=== PATIENT | female | born 1950 | race Caucasian/White ===

== ENCOUNTER 2020-11-02 14:48 | Emergency (ER) | payer MEDICARE ==
[2020-11-02 15:32] LABS: ALBUMIN 4.6 g/dL (3.5-5.0); ALKALINE PHOSPHATASE 95 U/L (38-126); ANION GAP 12.9 MEQ/L (5-15); BLOOD UREA NITROGEN 15 mg/dL (7-17); CHLORIDE 103 mmol/L (98-107); Calcium 10.7 mg/dL (8.4-10.2); Carbon Dioxide 26 mmol/L (22-30); Creatinine 1 0.75 mg/dL (0.52-1.04); EST GLOMERULAR FILTRATION RATE > 60.0 ML/MIN; Glucose 138 mg/dL (74-106); Potassium 3.8 mmol/L (3.5-5.1); SGOT/AST 24 U/L (14-36); SGPT/ALT 17 U/L (0-35); SODIUM 138 mmol/L (137-145); Total Protein 8.7 g/dL (6.3-8.2)
[2020-11-02 15:38] LABS: Absolute Neutrophil Ct (ANC) 6.91 (1.4-6.9); BASOPHIL % 0.1 % (0.0-0.4); Basophil (Absolute #) 0.01 (0-0.4); Eosinophil (Absolute #) 0.08 (0-0.5); Hematocrit 40.4 % (35-47); Lymphocyte (Absolute #) 0.54 (1.0-4.6); Lymphocytes % 6.7 % (24.0-44.0); Mean Corpuscular Hemoglobin 33.3 pg (26-32); Mean Corpuscular Hgb Concent. 34.7 g/dl (32-36); Monocytes % 6.2 % (0.0-12.0); Platelet Count 143 K/mm3 (150-450); Red Blood Count 4.21 M/mm3 (4.1-5.4); Red Cell Distribution Width 14.9 % (11.5-14.0)
--- NOTE | 2020-11-02 16:09 | ERPHSYRPT ---
- History of Present Illness Historian: patient Exam Limitations: no limitations Patient Subjective Stated Complaint: Pt states "I have had horrible lower belly pressure and lower back pain since friday. I had horrible bleeding and clots on my pad for the past few days as well." Triage Nursing Assessment: Pt presented alert and oriented X 3, ski pwd Pt ambulates with a slow shuffling gait. Pt able to speak in clear full sentences. Pt in no apparent respiratory distress. Physician History: 70 yo morbidly obese wf w hematuria/suprapubic pain/B CVA pain x 2 days. Pt denies dysuria/frequency/N/V/D/melena/hematochezia. Timing/Duration: other (2 days) Quality: aching Abdominal Pain Onset Location: suprapubic Pain Radiation: back Severity of Pain-Max: mild Severity of Pain-Current: mild Modifying Factors: Improves With: nothing Associated Symptoms: denies symptoms, back Previous symptoms: other (Recently treated for a uti) Allergies/Adverse Reactions: Tetanus Vaccines and Toxoid Allergy (Severe, Verified 05/05/19 08:18) Anaphylactic Reaction pravastatin [From Pravachol] Allergy (Intermediate, Verified 05/05/19 08:18) Muscle Aches oxycodone Adverse Reaction (Severe, Verified 05/05/19 08:18) Fatigue Home Medications: Alprazolam [Xanax] 0.5 mg PO Q6HPRN PRN 05/05/19 [History] Apixaban [Eliquis] 2.5 mg PO BID 05/05/19 [History] Ferrous Sulfate [Iron] 325 mg PO DAILY 05/05/19 [History] Magnesium Oxide [Mag-Oxide] 200 mg PO DAILY 05/05/19 [History] Metoprolol Succinate 25 mg Xl* [Toprol-Xl 25MG Tablets] 25 mg PO DAILY 05/05/19 [History] Potassium Chloride [Potassium Chloride 20 Meq Powder For Oral Lay] 20 meq PO BID 05/05/19 [History] Sertraline HCl 50 mg [Zoloft 50 mg Tablet] 50 mg PO DAILY 05/05/19 [History] Spironolactone [Aldactone] 100 mg PO DAILY 05/05/19 [History] lisinopriL [Zestril] 2.5 mg PO DAILY 05/05/19 [History] Bumetanide 1 mg [Bumex 1 mg] 1 mg PO DAILY 11/02/20 [History] Gabapentin [Neurontin] 300 mg PO BID 11/02/20 [History] Smz/Tmp Ds Tablet [Bactrim Ds Tablet] 1 tab PO Q12H 11/02/20 [History] Hx Tetanus, Diphtheria Vaccination/Date Given: No Hx Influenza Vaccination/Date Given: Yes Hx Pneumococcal Vaccination/Date Given: No Immunizations Up to Date: Yes Travel Risk - International Travel Have you traveled outside of the country in past 3 weeks: No - Coronavirus Screening Are you exhibiting any of the following symptoms?: No Close contact with a COVID-19 positive Pt in past 14-21 Days: No - Review of Systems Constitutional: No Symptoms Eyes: No Symptoms Ears, Nose, & Throat: No Symptoms Respiratory: No Symptoms Cardiac: No Symptoms Abdominal/Gastrointestinal: Abdominal Pain Genitourinary Symptoms: No Symptoms, Hematuria, Flank Pain Musculoskeletal: No Symptoms Skin: No Symptoms Neurological: No Symptoms Psychological: No Symptoms Endocrine: No Symptoms Hematologic/Lymphatic: No Symptoms Immunological/Allergic: No Symptoms - Past Medical History Pertinent Past Medical History: Yes Neurological History: No Pertinent History ENT History: No Pertinent History Cardiac History: Congenital Heart Disease, Congestive Heart Failure, Other Respiratory History: CHF, COPD, Sleep Apnea Endocrine Medical History: No Pertinent History Musculoskeletal History: Osteoarthritis GI Medical History: Gallbladder Disease History: Other Psycho-Social History: Depression Female Reproductive Disorders: No Pertinent History Other Medical History: sjogrens syndrome, cellulitis, incontinence - Past Surgical History Past Surgical History: Yes Neuro Surgical History: No Pertinent History Cardiac: Valve Replacement Respiratory: Chest Surgery Gastrointestinal: Cholecystectomy Genitourinary: No Pertinent History Musculoskeletal: Joint Replacement, Orthopedic Surgery Female Surgical History: No Pertinent History Other Surgical History: two valve replacment, both hips replacement, rotator cuff. - Social History Smoking Status: Current every day smoker How long have you smoked: years Exposure to second hand smoke: Yes Drug Use: none Patient Lives Alone: No Significant Family History: no pertinent family hx - Female History Hx Now: No - Nursing Vital Signs Nursing Vital Signs: Initial Vital Signs Temperature 98.7 F 11/02/20 14:58 Pulse Rate 115 H 11/02/20 14:58 Respiratory Rate 22 11/02/20 14:58 Blood Pressure 138/64 11/02/20 14:58 O2 Sat by Pulse Oximetry 95 11/02/20 14:58 Pain Scale Pain Intensity 4 - Physical Exam General Appearance: no apparent distress Eye Exam: PERRL/EOMI, eyes nml inspection Ears, Nose, Throat Exam: normal ENT inspection, TMs normal, pharynx normal, moist mucous membranes Neck Exam: normal inspection, non-tender, No Brudzinski, No Kernig's, No carotid bruit Respiratory Exam: normal breath sounds, lungs clear, airway intact, No respiratory distress Cardiovascular Exam: regular rate/rhythm, normal heart sounds, normal peripheral pulses, No murmur Gastrointestinal/Abdomen Exam: soft, normal bowel sounds, tenderness (Mild suprapubic ttp wo guarding or rebound) Back Exam: CVA tenderness Extremity Exam: normal range of motion, other (Chronic venous stasis changes B) Neurologic Exam: alert, oriented x 3, cooperative, driller hand II-XII nml as tested, normal mood/affect, sensation nml, No motor deficits, No sensory deficit Skin Exam: warm, dry Lymphatic Exam: No adenopathy SpO2: 95 O2 Delivery: Room Air Ordered Tests: Active Orders 24 hr Category Date Time Status ABDOMEN AND PELVIS W/0 CONTRAS [CT] Stat Exams 11/02/20 17:28 Taken CBC W DIFF Stat Lab 11/02/20 13:05 Completed CMP Stat Lab 11/02/20 13:05 Completed CULTURE,URINE Stat Lab 11/02/20 15:47 Received Lactic Acid Stat Lab 11/02/20 15:34 Completed UA W/RFX UR CULTURE Stat Lab 11/02/20 15:47 Completed Medication Summary Discontinued Medications Generic Name Dose Route Start Last Admin Trade Name Meleq PRN Reason Stop Dose Admin Ceftriaxone Sodium/Dextrose 1 g in 50 mls @ 100 mls/hr 11/02/20 18:28 11/02/20 18:47 Rocephin 1 Gm-D5w 50 Ml Bag IV 11/02/20 18:57 100 mls/hr STAT STA 100 mls/hr Administration Ceftriaxone Sodium/Dextrose Confirm 11/02/20 18:43 Rocephin 1 Gm-D5w 50 Ml Bag Administered 11/02/20 18:44 Dose 1 g in 50 mls @ ud IV .STK-MED ONE Ketorolac Tromethamine 15 mg 12/10/20 17:06 11/02/20 17:47 Toradol 30 Mg Injection IV 11/02/20 17:07 15 mg STAT ONE Administration Ketorolac Tromethamine Confirm 11/02/20 17:47 Toradol 30 Mg Injection Administered 11/02/20 17:48 Dose 30 mg .ROUTE .STK-MED ONE Lab/Rad Data: Laboratory Result Diagrams 11/02/20 13:05 11/02/20 13:05 Laboratory Results 11/02/20 11/02/20 11/02/20 Range/Units 15:47 15:34 13:05 WBC (4.0-10.5) K/mm3 RBC (4.1-5.4) M/mm3 Hgb (12.0-16.0) gm/dl Hct (35-47) % MCV (78-100) fl MCH (26-32) pg MCHC (32-36) g/dl RDW (11.5-14.0) % Plt Count (150-450) K/mm3 MPV (7.5-11.0) fl Gran % (36.0-66.0) % Eos # (Auto) (0-0.5) Absolute Lymphs (auto) (1.0-4.6) Absolute Monos (auto) (0.0-1.3) Lymphocytes % (24.0-44.0) % Monocytes % (0.0-12.0) % Eosinophils % (0.00-5.0) % Basophils % (0.0-0.4) % Absolute Granulocytes (1.4-6.9) Basophils # (0-0.4) Sodium 138 (137-145) mmol/L Potassium 3.8 (3.5-5.1) mmol/L Chloride 103 (98-107) mmol/L Carbon Dioxide 26 (22-30) mmol/L Anion Gap 12.9 (5-15) MEQ/L BUN 15 (7-17) mg/dL Creatinine 0.75 (0.52-1.04) mg/dL Estimated GFR > 60.0 ML/MIN Glucose 138 H (74-106) mg/dL Lactic Acid 2.0 (0.4-2.0) Calcium 10.7 H (8.4-10.2) mg/dL Total Bilirubin 0.60 (0.2-1.3) mg/dL AST 24 (14-36) U/L ALT 17 (0-35) U/L Alkaline Phosphatase 95 (38-126) U/L Serum Total Protein 8.7 H (6.3-8.2) g/dL Albumin 4.6 (3.5-5.0) g/dL Urine Color KAMRAN (YELLOW) Urine Appearance CLOUDY (CLEAR) Urine pH 5.0 (5-6) Ur Specific [place] 1.023 (1.005-1.025) Urine Protein 30 (Negative) Urine Ketones NEGATIVE (NEGATIVE) Urine Blood LARGE (0-5) Juvencio/ul Urine Nitrite NEGATIVE (NEGATIVE) Urine Bilirubin NEGATIVE (NEGATIVE) Urine Urobilinogen NEGATIVE (0-1) mg/dL Ur Leukocyte Esterase MODERATE (NEGATIVE) Urine WBC (Auto) 51-100 (0-5) /HPF Urine RBC (Auto) 51-100 (0-2) /HPF U Hyaline Cast (Auto) 3-5 (0-2) /LPF U Epithel Cells (Auto) FEW (FEW) /HPF Urine Bacteria (Auto) RARE (NEGATIVE) /HPF Calcium Oxalate Crystal 51-99 (NEGATIVE) /HPF Urine Mucus (Auto) SLIGHT (NEGATIVE) /HPF Urine Culture Reflexed YES (NO) Urine Glucose NEGATIVE (NEGATIVE) mg/dL Slides for Path Review 11/02/20 Range/Units 13:05 WBC 8.0 (4.0-10.5) K/mm3 RBC 4.21 (4.1-5.4) M/mm3 Hgb 14.0 (12.0-16.0) gm/dl Hct 40.4 (35-47) % MCV 96.0 (78-100) fl MCH 33.3 H (26-32) pg MCHC 34.7 (32-36) g/dl RDW 14.9 H (11.5-14.0) % Plt Count 143 L (150-450) K/mm3 MPV 10.0 (7.5-11.0) fl Gran % 86.0 H (36.0-66.0) % Eos # (Auto) 0.08 (0-0.5) Absolute Lymphs (auto) 0.54 L (1.0-4.6) Absolute Monos (auto) 0.50 (0.0-1.3) Lymphocytes % 6.7 L (24.0-44.0) % Monocytes % 6.2 (0.0-12.0) % Eosinophils % 1.0 (0.00-5.0) % Basophils % 0.1 (0.0-0.4) % Absolute Granulocytes 6.91 H (1.4-6.9) Basophils # 0.01 (0-0.4) Sodium (137-145) mmol/L Potassium (3.5-5.1) mmol/L Chloride (98-107) mmol/L Carbon Dioxide (22-30) mmol/L Anion Gap (5-15) MEQ/L BUN (7-17) mg/dL Creatinine (0.52-1.04) mg/dL Estimated GFR ML/MIN Glucose (74-106) mg/dL Lactic Acid (0.4-2.0) Calcium (8.4-10.2) mg/dL Total Bilirubin (0.2-1.3) mg/dL AST (14-36) U/L ALT (0-35) U/L Alkaline Phosphatase (38-126) U/L Serum Total Protein (6.3-8.2) g/dL Albumin (3.5-5.0) g/dL Urine Color (YELLOW) Urine Appearance (CLEAR) Urine pH (5-6) Ur Specific [place] (1.005-1.025) Urine Protein (Negative) Urine Ketones (NEGATIVE) Urine Blood (0-5) Juvencio/ul Urine Nitrite (NEGATIVE) Urine Bilirubin (NEGATIVE) Urine Urobilinogen (0-1) mg/dL Ur Leukocyte Esterase (NEGATIVE) Urine WBC (Auto) (0-5) /HPF Urine RBC (Auto) (0-2) /HPF U Hyaline Cast (Auto) (0-2) /LPF U Epithel Cells (Auto) (FEW) /HPF Urine Bacteria (Auto) (NEGATIVE) /HPF Calcium Oxalate Crystal (NEGATIVE) /HPF Urine Mucus (Auto) (NEGATIVE) /HPF Urine Culture Reflexed (NO) Urine Glucose (NEGATIVE) mg/dL Slides for Path Review YES - Progress Progress: improved Progress Note: 11/02/20 18:29 15mg IV Toradol w improvement in pain 1gm IV Rocephin Pt later states that she is actually on Bactrim from a Rx written by PCP 12/10/20 19:45 Counseled pt/family regarding: lab results, diagnosis, rad results - Departure Departure Disposition: Home Clinical Impression: UTI (urinary tract infection) Condition: Stable Critical Care Time: No Referrals: HERMINIO PATEL MD [Primary Care Provider] - Instructions: Urinary Tract Infections in Adults Additional Instructions: Fluids Start Cipro twice a day for 5 days Follow up with your family MD in 1-2 days Return to ER for increasing pain or temperature greater than 100.5 Prescriptions: Ciprofloxacin HCl [Cipro] 500 mg PO BID #10 tablet
[2020-11-02] MEDS ORDERED: TORAdol 30 mg Injection IV ONE (17:06)
[2020-11-02 17:15] LABS: Appearance CLOUDY (CLEAR); Bacteria RARE /HPF (NEGATIVE); Bilirubin NEGATIVE (NEGATIVE); Blood LARGE Ery/ul (0-5); Epithelial Cells FEW /HPF (FEW); Glucose NEGATIVE (NEGATIVE); Ketones NEGATIVE (NEGATIVE); Leukocyte Esterase MODERATE (NEGATIVE); Mucus SLIGHT /HPF (NEGATIVE); Nitrite NEGATIVE (NEGATIVE); Protein,Urine Dip 30 (Negative); RBC 51-100 /HPF (0-2); Specific Gravity 1.023 (1.005-1.025); Urobilinogen NEGATIVE mg/dL (0-1); WBC 51-100 /HPF (0-5)
[2020-11-02] MEDS ORDERED: TORAdol 30 mg Injection ONE (17:47)
[2020-11-02 17:55] LABS: Slide Review 1 YES
[2020-11-02] MEDS ORDERED: ROCEPHIN 1 Gm-D5w 50 ml Bag** 1 G/50 ML IVPB IV STA (18:28)
[2020-11-02] MEDS ORDERED: ROCEPHIN 1 Gm-D5w 50 ml Bag** 1 G/50 ML IVPB IV ONE (18:43)
[2020-11-02 19:12] VITALS: BP 102/70; PULSE 91
[2020-11-02 19:46] VITALS: O2SAT 95
--- NOTE | 2020-11-03 11:37 | XRAY ---
Exam: CT of the abdomen and pelvis without IV contrast from 11/02/2020. CTDI: 32.07 mGy Comparison: CT of the abdomen with IV contrast from 08/30/[address] of the abdomen and pelvis with IV contrast from 02/16/2020. Indication: 70-year-old female with lower abdominal pain and back pain; history of prior open heart surgery, appendectomy, cholecystectomy, and bilateral hip replacements. Technique: Non-IV contrast axial images were obtained through the abdomen and pelvis. Reconstructed coronal and sagittal images were created and reviewed. Findings: The lung bases again reveals slight cardiomegaly representing no significant change from 08/30/2020. A portion of sternal wires are seen from prior sternotomy. The visualized lung bases appear clear, except for some minimal linear scarring/plate atelectasis at the left lung base. There is equivocal evidence of a minimal hiatal hernia. This is unchanged. I again see at least mild hepatomegaly with the right lobe measuring about 19.5 cm in craniocaudal dimension on coronal image #68. I don't believe this is significantly changed. No gross liver mass is seen, although sensitivity is decreased on a non-IV contrast study only. Surgical clips consistent with prior cholecystectomy are again seen within the right upper quadrant. No intrahepatic biliary duct distention is seen. I again see evidence of splenomegaly with the spleen measuring about extending 16.1 cm in greatest craniocaudal dimension on coronal image #108. This is relatively similar to 08/30/2020. A focal splenic mass is not definitely seen, although again sensitivity is decreased on a non-IV contrast study only. I believe there are a few varices overlying the left midabdomen, best seen near the inferior portion of the spleen. I don't believe this is changed. The pancreas and adrenal glands reveal no significant abnormality. No abdominal aortic aneurysm is seen. Vascular calcification is seen within the abdominal aorta, branches of the celiac axis and superior mesenteric artery, as well as the proximal iliac arteries. No abnormal retroperitoneal lymphadenopathy is seen. There is a 2 mm calcification within the inferior pole of the left kidney on axial image #57 and coronal image #95 which likely represents a small renal stone. I see no evidence of definite renal mass or hydronephrosis. Prior small cortical cyst at the anterior lateral aspect of the upper to mid left kidney is difficult to see on today's non-IV contrast study. Again, assessment of the renal parenchyma is limited on a non-IV contrast study only. Some bilateral renal pelvic fat is seen. I believe there is a minimal fat-containing ventral hernia just superior and to the left of the umbilicus which in retrospect is unchanged. No bowel containing ventral hernia is seen. There is no free intraperitoneal air. The appendix is surgically absent. There is no evidence of bowel obstruction. I again see mild sigmoid colon diverticulosis without evidence of diverticulitis. Significant beam hardening artifact is seen within the lower pelvis due to metallic bilateral hip replacements. The uterus is anteflexed. It contains some small calcified uterine fibroids, the largest measuring 1.9 cm in diameter along the right aspect. This is essentially unchanged. The ovaries appear grossly unremarkable. No abnormal enlarged pelvic lymph nodes or free intraperitoneal fluid is seen. No acute osseous process is seen. Incidental note of a vertebral hemangioma is seen within the left aspect of L2 representing no change dating back to 02/16/2020. Lumbar facet joint arthropathy is seen, most prominent at the lower 3 lumbar interspace levels bilaterally. The most inferior aspect of the femoral stem component of the right hip replacement has not been included at the inferior margin of the new client banking services clerk image or CT images. The left hip arthroplasty appears unremarkable. Impression: 1. I again see mild sigmoid colon diverticulosis without obvious diverticulitis, no significant change from 02/16/2020. 2. Bilateral hip prostheses cause significant CT artifact through the lower pelvis. 3. There is a 2 mm calcification within the lower pole of the left kidney which likely represents a small nonobstructing stone. No hydronephrosis is seen. 4. Some calcified uterine fibroids are again seen within the uterus representing no significant change. The ovaries appear grossly unremarkable. 5. Equivocal evidence of small hiatal hernia. In addition, I believe there is a small stable fat containing ventral hernia just superior and to the left of the umbilicus. No bowel containing ventral hernia is seen. 6. Mild hepatosplenomegaly is again seen. A few varices are noted adjacent to the lower portion of the spleen representing no change. 7. No other acute process seen within the abdomen or pelvis.
== END 2020-11-02 19:33 | disposition home or self-care (01) ==
LOC: ED 14:48
DX: N39.0 Urinary tract infection, site not specified (principal); Z79.01 Long term (current) use of anticoagulants; Z79.899 Other long term (current) drug therapy; I50.9 Heart failure, unspecified; G47.30 Sleep apnea, unspecified; F51.9 Sleep disorder not due to a substance or known physiological condition, unspecified; J44.9 Chronic obstructive pulmonary disease, unspecified
CPT/HCPCS: 36415; 74176; 80053; 81001; 83605; 85025; 87077; 87086; 87186; 96365; 96374; 99284; J0696; J1885

== ENCOUNTER 2020-11-07 17:32 | Observation (INO) | payer MEDICARE ==
[2020-11-07 19:40] LABS: Absolute Neutrophil Ct (ANC) 6.62 (1.4-6.9); BASOPHIL % 0.2 % (0.0-0.4); Basophil (Absolute #) 0.02 (0-0.4); Eosinophil % 1.2 % (0.00-5.0); Hematocrit 27.8 % (35-47); Lymphocyte (Absolute #) 1.02 (1.0-4.6); Lymphocytes % 12.3 % (24.0-44.0); Mean Cell Volume 100.7 fl (78-100); Mean Corpuscular Hemoglobin 32.6 pg (26-32); Mean Corpuscular Hgb Concent. 32.4 g/dl (32-36); Mean Platelet Volume 9.3 fl (7.5-11.0); Monocyte (Absolute #) 0.53 (0.0-1.3); Monocytes % 6.4 % (0.0-12.0); Neutrophil % 79.9 % (36.0-66.0); Platelet Count 144 K/mm3 (150-450); Red Blood Count 2.76 M/mm3 (4.1-5.4); Red Cell Distribution Width 15.3 % (11.5-14.0); White Blood Count 8.3 K/mm3 (4.0-10.5)
[2020-11-07 19:47] LABS: ALBUMIN 3.8 g/dL (3.5-5.0); ALKALINE PHOSPHATASE 73 U/L (38-126); ANION GAP 10.7 MEQ/L (5-15); BLOOD UREA NITROGEN 9 mg/dL (7-17); CHLORIDE 102 mmol/L (98-107); Calcium 9.8 mg/dL (8.4-10.2); Carbon Dioxide 28 mmol/L (22-30); Creatinine 1 0.68 mg/dL (0.52-1.04); EST GLOMERULAR FILTRATION RATE > 60.0 ML/MIN; Glucose 99 mg/dL (74-106); Potassium 3.8 mmol/L (3.5-5.1); SGOT/AST 21 U/L (14-36); SGPT/ALT 13 U/L (0-35); SODIUM 136 mmol/L (137-145); Total Protein 7.1 g/dL (6.3-8.2)
[2020-11-07 20:00] LABS: Iron 38 ug/dL (37-170); Iron Saturation 11 % (20-39); TIBC 360 ug/dL (265-462)
[2020-11-07] MEDS ORDERED: Sodium Chloride 0.9% 1000 ML 1,000 ML IV STA (20:32)
[2020-11-07] MEDS ORDERED: ULTRAM 50 MG PO PRN (21:11)
[2020-11-07] MEDS ORDERED: NEURONTIN 300 MG PO SCH (21:15)
[2020-11-07] MEDS ORDERED: xanAX 0.25 MG PO SCH (21:15)
[2020-11-07] MEDS: Sodium Chloride 0.9% 1000 ML 1,000 ML IV SCH (21:43)
[2020-11-07] MEDS ORDERED: ZOLOFT 50 MG TABLET PO SCH (22:00)
[2020-11-07 22:55] LABS: Appearance CLOUDY (CLEAR); Bilirubin MODERATE (NEGATIVE); Dipstick done @ ? MAIN LAB; Glucose 100 mg/dL (NEGATIVE); Ketones TRACE (NEGATIVE); Nitrite NEGATIVE (NEGATIVE); Protein,Urine Dip >=300 (Negative); RBC LARGE Ery/ul (0-5); Urobilinogen 1 mg/dL (0-1)
[2020-11-07 23:13] LABS: Bacteria RARE /HPF (NEGATIVE); Mucus SLIGHT /HPF (NEGATIVE); RBC >101 /HPF (0-2)
[2020-11-07 23:14] LABS: ABO TYPING O; Antibody Screen NEGATIVE (NEGATIVE); RH TYPING NEGATIVE
[2020-11-07 23:16] LABS: CROSS MATCH (PRBC) COMPATIBLE (COMPATIBLE)
[2020-11-07] MEDS ORDERED: TYLENOL 325 MG PO PRN (23:47)
[2020-11-08 00:28] LABS: Hematocrit 24.8 % (35-47); Hemoglobin 7.9 gm/dl (12.0-16.0); Mean Cell Volume 101.2 fl (78-100); Mean Corpuscular Hemoglobin 32.2 pg (26-32); Mean Corpuscular Hgb Concent. 31.9 g/dl (32-36); Mean Platelet Volume 9.4 fl (7.5-11.0); Platelet Count 124 K/mm3 (150-450); Red Blood Count 2.45 M/mm3 (4.1-5.4); Red Cell Distribution Width 15.4 % (11.5-14.0); White Blood Count 7.3 K/mm3 (4.0-10.5)
[2020-11-08] MEDS ORDERED: VENTOLIN COMMON CANISTER IH PRN (02:13)
[2020-11-08] MEDS ORDERED: Advair Hfa 230/21 Mcg COMMON CANISTER IH SCH (07:00)
[2020-11-08 07:04] LABS: Hematocrit 26.6 % (35-47); Hemoglobin 8.5 gm/dl (12.0-16.0); Mean Cell Volume 100.8 fl (78-100); Mean Corpuscular Hemoglobin 32.2 pg (26-32); Mean Platelet Volume 9.9 fl (7.5-11.0); Platelet Count 129 K/mm3 (150-450); Red Blood Count 2.64 M/mm3 (4.1-5.4); Red Cell Distribution Width 15.8 % (11.5-14.0); White Blood Count 6.6 K/mm3 (4.0-10.5)
[2020-11-08 07:13] LABS: ALBUMIN 3.3 g/dL (3.5-5.0); ALKALINE PHOSPHATASE 55 U/L (38-126); ANION GAP 7.4 MEQ/L (5-15); BLOOD UREA NITROGEN 8 mg/dL (7-17); CHLORIDE 104 mmol/L (98-107); Calcium 9.2 mg/dL (8.4-10.2); Carbon Dioxide 27 mmol/L (22-30); Creatinine 1 0.73 mg/dL (0.52-1.04); EST GLOMERULAR FILTRATION RATE > 60.0 ML/MIN; Glucose 95 mg/dL (74-106); Potassium 3.7 mmol/L (3.5-5.1); SGOT/AST 18 U/L (14-36); SGPT/ALT 11 U/L (0-35); SODIUM 135 mmol/L (137-145); Total Protein 6.2 g/dL (6.3-8.2)
[2020-11-08] MEDS ORDERED: NEURONTIN 300 MG PO PRN (07:30)
[2020-11-08] MEDS ORDERED: MEDICATION INTERVENTION MC SCH (09:45)
[2020-11-08] MEDS ORDERED: VITAMIN D PO SCH (10:00)
[2020-11-08] MEDS ORDERED: NON-FORMULARY ITEM (Cholecalciferol (Vitamin D3) [Vitamin D3] 5,000 UNIT) PO SCH (10:00)
[2020-11-08] MEDS ORDERED: Wellbutrin XL 150 MG PO SCH (10:00)
[2020-11-08] MEDS ORDERED: NON-FORMULARY ITEM (Magnesium [Magnesium] 250 MG) PO SCH (10:00)
[2020-11-08] MEDS ORDERED: HYDROXYCHLOROQUINE SULFATE PO SCH (10:00)
[2020-11-08] MEDS ORDERED: Singulair 10 MG PO SCH (10:00)
[2020-11-08] MEDS ORDERED: Zestril 5 MG PO SCH (10:00)
[2020-11-08] MEDS ORDERED: VITAMIN B COMPLEX PO SCH (10:00)
[2020-11-08] MEDS ORDERED: Aldactone 25 MG PO SCH (10:00)
[2020-11-08] MEDS ORDERED: VITA-BEE WITH C PO SCH (10:00)
[2020-11-08] MEDS ORDERED: TURMERIC ROOT EXTRACT 500 MG PO SCH (10:00)
[2020-11-08] MEDS ORDERED: MAG-OX 400 PO SCH (10:00)
[2020-11-08] MEDS ORDERED: NON-FORMULARY ITEM (Lisinopril [Zestril] 2.5 MG) PO SCH (10:00)
[2020-11-08] MEDS: Sodium Chloride 0.9% 1000 ML 1,000 ML IV SCH (10:26)
--- NOTE | 2020-11-08 10:28 | PCM.DS ---
Discharge Summary Date of Admission: 11/07/20 17:39 Date of Discharge: 11/08/20 Admitting Physician: HERMINIO PATEL MD Primary Care Provider: HERMINIO PATEL MD Allergies Allergies Tetanus Vaccines and Toxoid Allergy (Severe, Verified 05/05/19 08:18) Anaphylactic Reaction pravastatin [From Pravachol] Allergy (Intermediate, Verified 05/05/19 08:18) Muscle Aches oxycodone Adverse Reaction (Severe, Verified 11/07/20 21:28) [facility] Summary - Hospital Course Hospital Course: 70 yr old female was seen in clinic yesterday and was directly admitted to medical floor for vaginal bleeding weakness and anemia. Patient report she was in the ER on for pelvic pain and diagnosed with UTI and started on cipro and discharged home. Patient reports that she started having blood clots on and had told the ER doctor that she was having vaginal bleeding but reports no exam was done. CT performed at that time showed uterine fibroids. Patient called the clinic friday and stated she was having increased bleeding. Patient was told to either go to er or come to the clinic. She had endometrial biopsy and pap smear performed in clinic. She was actively bleeding and appeared weak and unwell. We discussed direct admission and patient was agreeable. She was bolused with IV fluids NS. Labs showed a drop in hgb from 14 on 11/02/20 to 9 11/08/20. Patient has had thrombocytopenia as well. Patient was type and screened and repeat hgb at midnight was 7.9. She was transfused 1 unit PRBCs. Repeat hgb this am 8.5. She will be transfused another unit as she is still having active bleeding and is symptomatic. Her eliquis and aspirin were held. Patient reported that she feels less shaky today. She is agreeable to transfer and consideration for possible surgery if required. Patient's VS have improved since admission however she continues to have borderline hypotension. - Vitals & Intake/Output Vital Signs: Vital Signs Temperature 97.4 F 11/08/20 07:10 Pulse Rate 72 11/08/20 08:26 Respiratory Rate 16 11/08/20 08:26 Blood Pressure 90/51 11/08/20 07:10 O2 Sat by Pulse Oximetry 98 11/08/20 08:26 Intake & Output: Intake & Output 12/13/20 11/06/20 11/07/20 11/08/20 11:59 11:59 11:59 11:59 Intake Total 4414 Output Total 450 Balance 3964 Weight 127 kg - Lab Result Diagrams: 11/08/20 11:12 11/08/20 05:20 Lab Results-Last 24 Hrs: Lab Results-Last 24 Hours 11/07/20 11/07/20 11/07/20 Range/Units 19:30 19:30 19:30 WBC 8.3 (4.0-10.5) K/mm3 RBC 2.76 L (4.1-5.4) M/mm3 Hgb 9.0 L (12.0-16.0) gm/dl Hct 27.8 L (35-47) % MCV 100.7 H (78-100) fl MCH 32.6 H (26-32) pg MCHC 32.4 (32-36) g/dl RDW 15.3 H (11.5-14.0) % Plt Count 144 L (150-450) K/mm3 MPV 9.3 (7.5-11.0) fl Gran % 79.9 H (36.0-66.0) % Eos # (Auto) 0.10 (0-0.5) Absolute Lymphs (auto) 1.02 (1.0-4.6) Absolute Monos (auto) 0.53 (0.0-1.3) Lymphocytes % 12.3 L (24.0-44.0) % Monocytes % 6.4 (0.0-12.0) % Eosinophils % 1.2 (0.00-5.0) % Basophils % 0.2 (0.0-0.4) % Absolute Granulocytes 6.62 (1.4-6.9) Basophils # 0.02 (0-0.4) Sodium 136 L (137-145) mmol/L Potassium 3.8 (3.5-5.1) mmol/L Chloride 102 (98-107) mmol/L Carbon Dioxide 28 (22-30) mmol/L Anion Gap 10.7 (5-15) MEQ/L BUN 9 (7-17) mg/dL Creatinine 0.68 (0.52-1.04) mg/dL Estimated GFR > 60.0 ML/MIN Glucose 99 (74-106) mg/dL Calcium 9.8 (8.4-10.2) mg/dL Iron (37-170) ug/dL TIBC (265-462) ug/dL Iron Saturation (20-39) % Ferritin 26.2 (11.1-264) ng/mL Total Bilirubin 0.40 (0.2-1.3) mg/dL AST 21 (14-36) U/L ALT 13 (0-35) U/L Alkaline Phosphatase 73 (38-126) U/L Serum Total Protein 7.1 (6.3-8.2) g/dL Albumin 3.8 (3.5-5.0) g/dL Urinalys Dipstick Clnc Urine Color Urine Appearance Urine pH Ur Specific [place] Urine Protein POC Urine Protein Conf (Negative) Urine Ketones Urine Blood Urine Nitrite Urine Bilirubin Urine Urobilinogen Ur Leukocyte Esterase Urine Leukocytes (NEGATIVE) Urine WBC (Auto) (0-5) /HPF Urine RBC (Auto) (0-2) /HPF U Epithel Cells (Auto) (FEW) /HPF Urine Bacteria (Auto) (NEGATIVE) /HPF Urine RBC (0-5) Juvencio/ul U Non-Squamous Epi Cells Urine Mucus (Auto) (NEGATIVE) /HPF Ur Culture Indicated? Urine Culture Reflexed Urine Glucose (NEGATIVE) mg/dL ABO Group Rh Factor Antibody Screen (NEGATIVE) Crossmatch (COMPATIBLE) 11/07/20 11/07/20 11/07/20 Range/Units 19:30 20:50 20:50 WBC (4.0-10.5) K/mm3 RBC (4.1-5.4) M/mm3 Hgb (12.0-16.0) gm/dl Hct (35-47) % MCV (78-100) fl MCH (26-32) pg MCHC (32-36) g/dl RDW (11.5-14.0) % Plt Count (150-450) K/mm3 MPV (7.5-11.0) fl Gran % (36.0-66.0) % Eos # (Auto) (0-0.5) Absolute Lymphs (auto) (1.0-4.6) Absolute Monos (auto) (0.0-1.3) Lymphocytes % (24.0-44.0) % Monocytes % (0.0-12.0) % Eosinophils % (0.00-5.0) % Basophils % (0.0-0.4) % Absolute Granulocytes (1.4-6.9) Basophils # (0-0.4) Sodium (137-145) mmol/L Potassium (3.5-5.1) mmol/L Chloride (98-107) mmol/L Carbon Dioxide (22-30) mmol/L Anion Gap (5-15) MEQ/L BUN (7-17) mg/dL Creatinine (0.52-1.04) mg/dL Estimated GFR ML/MIN Glucose (74-106) mg/dL Calcium (8.4-10.2) mg/dL Iron 38 (37-170) ug/dL TIBC 360 (265-462) ug/dL Iron Saturation 11 L (20-39) % Ferritin (11.1-264) ng/mL Total Bilirubin (0.2-1.3) mg/dL AST (14-36) U/L ALT (0-35) U/L Alkaline Phosphatase (38-126) U/L Serum Total Protein (6.3-8.2) g/dL Albumin (3.5-5.0) g/dL Urinalys Dipstick Clnc Urine Color Urine Appearance Urine pH Ur Specific [place] Urine Protein POC Urine Protein Conf (Negative) Urine Ketones Urine Blood Urine Nitrite Urine Bilirubin Urine Urobilinogen Ur Leukocyte Esterase Urine Leukocytes (NEGATIVE) Urine WBC (Auto) (0-5) /HPF Urine RBC (Auto) (0-2) /HPF U Epithel Cells (Auto) (FEW) /HPF Urine Bacteria (Auto) (NEGATIVE) /HPF Urine RBC (0-5) Juvencio/ul U Non-Squamous Epi Cells Urine Mucus (Auto) (NEGATIVE) /HPF Ur Culture Indicated? Urine Culture Reflexed Urine Glucose (NEGATIVE) mg/dL ABO Group O Rh Factor NEGATIVE Antibody Screen NEGATIVE (NEGATIVE) Crossmatch COMPATIBLE (COMPATIBLE) 11/07/20 11/07/20 11/08/20 Range/Units 20:50 22:47 00:15 WBC 7.3 (4.0-10.5) K/mm3 RBC 2.45 L (4.1-5.4) M/mm3 Hgb 7.9 L (12.0-16.0) gm/dl Hct 24.8 L (35-47) % MCV 101.2 H (78-100) fl MCH 32.2 H (26-32) pg MCHC 31.9 L (32-36) g/dl RDW 15.4 H (11.5-14.0) % Plt Count 124 L (150-450) K/mm3 MPV 9.4 (7.5-11.0) fl Gran % (36.0-66.0) % Eos # (Auto) (0-0.5) Absolute Lymphs (auto) (1.0-4.6) Absolute Monos (auto) (0.0-1.3) Lymphocytes % (24.0-44.0) % Monocytes % (0.0-12.0) % Eosinophils % (0.00-5.0) % Basophils % (0.0-0.4) % Absolute Granulocytes (1.4-6.9) Basophils # (0-0.4) Sodium (137-145) mmol/L Potassium (3.5-5.1) mmol/L Chloride (98-107) mmol/L Carbon Dioxide (22-30) mmol/L Anion Gap (5-15) MEQ/L BUN (7-17) mg/dL Creatinine (0.52-1.04) mg/dL Estimated GFR ML/MIN Glucose (74-106) mg/dL Calcium (8.4-10.2) mg/dL Iron (37-170) ug/dL TIBC (265-462) ug/dL Iron Saturation (20-39) % Ferritin (11.1-264) ng/mL Total Bilirubin (0.2-1.3) mg/dL AST (14-36) U/L ALT (0-35) U/L Alkaline Phosphatase (38-126) U/L Serum Total Protein (6.3-8.2) g/dL Albumin (3.5-5.0) g/dL Urinalys Dipstick Clnc MAIN LAB Urine Color Cancelled Urine Appearance Cancelled Urine pH Cancelled Ur Specific [place] Cancelled Urine Protein Cancelled POC Urine Protein Conf >=300 (Negative) Urine Ketones Cancelled Urine Blood Cancelled Urine Nitrite Cancelled Urine Bilirubin Cancelled Urine Urobilinogen Cancelled Ur Leukocyte Esterase Cancelled Urine Leukocytes NEGATIVE (NEGATIVE) Urine WBC (Auto) 3-5 (0-5) /HPF Urine RBC (Auto) >101 (0-2) /HPF U Epithel Cells (Auto) NONE (FEW) /HPF Urine Bacteria (Auto) RARE (NEGATIVE) /HPF Urine RBC LARGE (0-5) Juvencio/ul U Non-Squamous Epi Cells Cancelled Urine Mucus (Auto) SLIGHT (NEGATIVE) /HPF Ur Culture Indicated? YES Urine Culture Reflexed Cancelled Urine Glucose 100 (NEGATIVE) mg/dL ABO Group Rh Factor Antibody Screen (NEGATIVE) Crossmatch COMPATIBLE (COMPATIBLE) 11/08/20 11/08/20 Range/Units 05:20 05:20 WBC 6.6 (4.0-10.5) K/mm3 RBC 2.64 L (4.1-5.4) M/mm3 Hgb 8.5 L (12.0-16.0) gm/dl Hct 26.6 L (35-47) % MCV 100.8 H (78-100) fl MCH 32.2 H (26-32) pg MCHC 32.0 (32-36) g/dl RDW 15.8 H (11.5-14.0) % Plt Count 129 L (150-450) K/mm3 MPV 9.9 (7.5-11.0) fl Gran % (36.0-66.0) % Eos # (Auto) (0-0.5) Absolute Lymphs (auto) (1.0-4.6) Absolute Monos (auto) (0.0-1.3) Lymphocytes % (24.0-44.0) % Monocytes % (0.0-12.0) % Eosinophils % (0.00-5.0) % Basophils % (0.0-0.4) % Absolute Granulocytes (1.4-6.9) Basophils # (0-0.4) Sodium 135 L (137-145) mmol/L Potassium 3.7 (3.5-5.1) mmol/L Chloride 104 (98-107) mmol/L Carbon Dioxide 27 (22-30) mmol/L Anion Gap 7.4 (5-15) MEQ/L BUN 8 (7-17) mg/dL Creatinine 0.73 (0.52-1.04) mg/dL Estimated GFR > 60.0 ML/MIN Glucose 95 (74-106) mg/dL Calcium 9.2 (8.4-10.2) mg/dL Iron (37-170) ug/dL TIBC (265-462) ug/dL Iron Saturation (20-39) % Ferritin (11.1-264) ng/mL Total Bilirubin 0.50 (0.2-1.3) mg/dL AST 18 (14-36) U/L ALT 11 (0-35) U/L Alkaline Phosphatase 55 (38-126) U/L Serum Total Protein 6.2 L (6.3-8.2) g/dL Albumin 3.3 L (3.5-5.0) g/dL Urinalys Dipstick Clnc Urine Color Urine Appearance Urine pH Ur Specific [place] Urine Protein POC Urine Protein Conf (Negative) Urine Ketones Urine Blood Urine Nitrite Urine Bilirubin Urine Urobilinogen Ur Leukocyte Esterase Urine Leukocytes (NEGATIVE) Urine WBC (Auto) (0-5) /HPF Urine RBC (Auto) (0-2) /HPF U Epithel Cells (Auto) (FEW) /HPF Urine Bacteria (Auto) (NEGATIVE) /HPF Urine RBC (0-5) Juvencio/ul U Non-Squamous Epi Cells Urine Mucus (Auto) (NEGATIVE) /HPF Ur Culture Indicated? Urine Culture Reflexed Urine Glucose (NEGATIVE) mg/dL ABO Group Rh Factor Antibody Screen (NEGATIVE) Crossmatch (COMPATIBLE) - Procedures and Test Procedures and Tests throughout Hospitalization: Therapy Orders & Screens 11/08/20 02:54 Oxygen NASAL CANNULA 2 lpm Comment: Diagnosis: WEAKNESS, ABD/ BACK PAIN Respiratory Therapy Assessment DAILY Comment: Diagnosis: WEAKNESS, ABD/ BACK PAIN Discharge Exam General Appearance: moderate distress Neurologic Exam: alert, oriented x 3, cooperative, normal mood/affect, other (proptosis) Ears, Nose, Throat Exam: moist mucous membranes Respiratory Exam: other (patient is breathless with speaking) Cardiovascular Exam: murmur, No friction rub, No gallop Gastrointestinal/Abdomen Exam: soft, normal bowel sounds, tenderness (Diffuse abdominal tenderness) Pelvic Exam: vaginal bleeding, other Rectal Exam: deferred Extremity Exam: pedal edema, swelling, other (Lower extremites are dusky in colo r) Skin Exam: warm, dry, No rash Final Diagnosis/Problem List - Final Discharge Diagnosis/Problem (1) Vaginal bleeding Current Visit: Yes Status: Acute Assessment & Plan: Patient is post menopausal and started having vaginal bleeding with reported "large blood clots" which she states stated last . She was seen in ER and had stable hgb at that time. CT showed uterine fibroids unchanged from last CT done in january. Patient had endometrial biopsy done 11/07/20 results pending. Eliquis and aspirin were held. Patient was symptomatic and VS reflected hemodynamically unstable. Her pulse has normalized and bp has started to gradually improve however borderline hypotensive at times. She has been received 2 units of PRBCs. 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 Code(s): N93.9 - ABNORMAL UTERINE AND VAGINAL BLEEDING, UNSPECIFIED (2) Weakness Current Visit: Yes Status: Acute Assessment & Plan: Patient reports she feels better this am. She is not as shaky as she was yesterday. She still feels unwell. She continues to feel weak and continues to be breathless when speaking. Code(s): R53.1 - WEAKNESS (3) Anemia due to blood loss Current Visit: Yes Status: Acute Code(s): D50.0 - IRON DEFICIENCY ANEMIA SECONDARY TO BLOOD LOSS (CHRONIC) (4) Morbid (severe) obesity due to excess calories Current Visit: Yes Status: Acute Assessment & Plan: Patient's BMI is 43. Patient feels her abdomen is more distended than usual. Code(s): E66.01 - MORBID (SEVERE) OBESITY DUE TO EXCESS CALORIES (5) Pelvic pain Current Visit: Yes Status: Acute Assessment & Plan: Patient has been taking Tylenol for pain and that has been sufficient. She reports her pelvic pain has improved slightly since admission. Code(s): R10.2 - PELVIC AND PERINEAL PAIN (6) Thrombocytopenia Current Visit: Yes Status: Acute Assessment & Plan: Will continue to trend. Patient has had hx of thrombocytopenia - Discharge Prescriptions: No Action Metoprolol Succinate 25 mg Xl* [Toprol-Xl 25MG Tablets] 25 mg PO DAILY Sertraline HCl 50 mg [Zoloft 50 mg Tablet] 100 mg PO HS lisinopriL [Zestril] 2.5 mg PO DAILY Gabapentin [Neurontin] 300 mg PO BID Ciprofloxacin HCl [Cipro] 500 mg PO BID #10 tablet Apixaban [Eliquis] 5 mg PO BID Potassium Chloride 10 Meq Tab* [Klor Con 10 MEQ] 10 meq PO BID Bumetanide 1 mg [Bumex 1 mg] 2 mg PO UD Montelukast Sodium 10 mg [Singulair 10 MG] 10 mg PO DAILY Aspirin EC 81 mg [Ecotrin 81 mg] 81 mg PO DAILY Spironolactone 25 mg [Aldactone 25 MG] 50 mg PO DAILY Hydroxychloroquine Sulfate 200 mg PO BID Magnesium 250 mg PO BID Cholecalciferol (Vitamin D3) [Vitamin D3] 5,000 unit PO DAILY Vitamin B Complex [Super B Complex] 1 cap PO DAILY Budesonide/Formoterol Fumarate [Budesonide-Formoterol 160-4.5] 2 puffs PO DAILY Bupropion HCl [Wellbutrin Xl] 150 mg PO DAILY Metformin HCl 500 mg [Glucophage 500 MG] 500 mg PO DAILY Mirabegron [Myrbetriq] 50 mg PO BID Ferrous Sulfate [Iron] 325 mg PO HS Turmeric Root Extract [Turmeric] 500 mg PO DAILY L.acidoph,Paracasei, B.lactis [Probiotic] 1 each PO HS Follow up with: HERMINIO PTAEL MD [Primary Care Provider] -
[2020-11-08 11:28] LABS: BAND 1 % (0.0-2.0); Eosinophil 1 % (0.00-3.0); Lymphocytes 15 % (24-44); Monocyte 5 % (0.0-12.0); Neutrophils 78 % (36.0-66.0); Total Cells Counted 100
[2020-11-08 11:28] LABS: Hemoglobin 8.3 gm/dl (12.0-16.0)
[2020-11-08 11:29] LABS: Platelet Estimate DECREASED (NORMAL)
[2020-11-08 11:31] LABS: INR 1.38 (0.8-3.0); PROTIME 15.7 SECONDS (9.95-12.35)
[2020-11-08 11:33] LABS: PTT 32.7 SECONDS (25.3-37.0)
[2020-11-08 11:48] VITALS: O2SAT 95
[2020-11-08 16:32] VITALS: BP 94/53; PULSE 82
[2020-11-08] MEDS ORDERED: FEOSOL 325 MG PO SCH (22:00)
[2020-11-08] MEDS ORDERED: NON-FORMULARY ITEM (L.Acidoph,Paracasei, B.Lactis [Probiotic] 1 EACH) PO SCH (22:00)
[2020-11-08] MEDS ORDERED: Acidophilus TABLET PO SCH (22:00)
== END 2020-11-08 16:17 ==
LOC: MED SURG 17:39
PROVIDERS: ADMIT Family Medicine; ATTEND Family Medicine
DX: N93.9 Abnormal uterine and vaginal bleeding, unspecified (principal); R53.1 Weakness; D50.0 Iron deficiency anemia secondary to blood loss (chronic); E66.01 Morbid (severe) obesity due to excess calories; D69.6 Thrombocytopenia, unspecified; Z79.899 Other long term (current) drug therapy; Z79.01 Long term (current) use of anticoagulants; N39.0 Urinary tract infection, site not specified; R10.2 Pelvic and perineal pain
CPT/HCPCS: 36415; 36430; 80053; 81015; 82607; 82728; 82746; 83540; 83550; 84466; 85014; 85018; 85025; 85027; 85610; 85730; 86850; 86900; 86901; 86922; 87086; 94640; 94760; G0378; P9016; A9270-GY

== ENCOUNTER 2021-12-28 13:15 | Emergency (ER) | payer MEDICARE ==
[2021-12-28] MEDS ORDERED: SUBLIMAZE 100 MCG/2 ML IV ONE ×3 (13:23→16:22)
[2021-12-28] MEDS ORDERED: Zofran 4 MG/2 ML VIAL IV ONE (13:23)
[2021-12-28] MEDS ORDERED: Sodium Chloride 0.9% 1000 ML 1,000 ML IV STA (13:23)
[2021-12-28] MEDS ORDERED: Zofran 4 MG/2 ML VIAL ONE (13:32)
[2021-12-28] MEDS ORDERED: Sodium Chloride 0.9% 1000 ML 1,000 ML ONE (13:32)
[2021-12-28] MEDS ORDERED: SUBLIMAZE 100 MCG/2 ML ONE ×3 (13:32→16:17)
[2021-12-28 14:06] LABS: Absolute Neutrophil Ct (ANC) 13.93 (1.4-6.9); Basophil (Absolute #) 0.01 (0-0.4); Eosinophil (Absolute #) 0 (0-0.5); Hematocrit 45.3 % (35-47); Hemoglobin 15.6 gm/dl (12.0-16.0); Lymphocyte (Absolute #) 0.22 (1.0-4.6); Lymphocytes % 1.5 % (24.0-44.0); Mean Cell Volume 95.4 fl (78-100); Mean Corpuscular Hemoglobin 32.8 pg (26-32); Mean Corpuscular Hgb Concent. 34.4 g/dl (32-36); Mean Platelet Volume 10.1 fl (7.5-11.0); Monocyte (Absolute #) 0.85 (0.0-1.3); Monocytes % 5.7 % (0.0-12.0); Neutrophil % 92.7 % (36.0-66.0); Platelet Count 106 K/mm3 (150-450); Red Blood Count 4.75 M/mm3 (4.1-5.4); Red Cell Distribution Width 13.8 % (11.5-14.0)
[2021-12-28 14:12] LABS: INR 1.56 (0.8-3.0); PROTIME 18.4 SECONDS (9.4-12.5)
[2021-12-28 14:17] LABS: ALBUMIN 3.8 g/dL (3.5-5.0); ALKALINE PHOSPHATASE 41 U/L (38-126); AMYLASE 31 U/L (30-110); ANION GAP 14.7 MEQ/L (5-15); BLOOD UREA NITROGEN 14 mg/dL (7-17); CHLORIDE 105 mmol/L (98-107); Carbon Dioxide 19 mmol/L (22-30); Creatinine 1 1.05 mg/dL (0.52-1.04); EST GLOMERULAR FILTRATION RATE 54.9 ML/MIN; Glucose 110 mg/dL (74-106); Potassium 4.2 mmol/L (3.5-5.1); SGOT/AST 24 U/L (14-36); SGPT/ALT 19 U/L (0-35); SODIUM 135 mmol/L (137-145); Total Protein 6.8 g/dL (6.3-8.2)
[2021-12-28 14:31] LABS: LIPASE < 10 U/L (23-300)
--- NOTE | 2021-12-28 14:38 | XRAY ---
Indication: Left flank pain. Comparison: May 28, 2021. Portable chest again demonstrates cardiomegaly with cardiac valve replacement surgery. Stable tiny calcified granulomas and left midlung subsegmental atelectasis/scarring. Bony thorax intact again with sternotomy wires. Impression: Continued nonacute chest with chronic features.
--- NOTE | 2021-12-28 14:42 | XRAY ---
Indication: Left flank pain. Multiple contiguous axial images obtained through the abdomen and pelvis without contrast using renal stone protocol. Comparison: November 02, 2020. Lung bases again demonstrates minimal subsegmental atelectasis/scarring. No infiltrate or effusion. Heart remains enlarged. Images of the pelvis again limited due to extreme beam artifact from bilateral hip prostheses. New 5-6 mm distal left ureter calculus. Proximal left ureter is prominent along with moderate hydronephrosis and perinephric stranding consistent with high-grade obstructive uropathy. No renal calculus or evidence for obstructive uropathy on the right. Noncontrasted stomach and visualized bowel loops nonobstructed again with sigmoid diverticulosis. Liver and spleen both remain enlarged measuring 21 cm and 14.7 cm respectively. Gallbladder again surgically absent. Uterus again demonstrates calcified uterine fibroids with new IUD. No large free fluid/air. Remaining liver, pancreas, spleen, adrenal glands, kidneys, ureters, and bladder are unremarkable for noncontrast exam. Again mild scattered aortoiliac calcifications without AAA. Osseous structures intact again with mild osteopenia and mild degenerative changes throughout the spine. Impression: 1. Again bilateral total hip arthroplasty producing extreme beam artifact. 2. New 5-6 mm distal left ureter calculus producing high-grade obstruction. 3. New uterine IUD. 4. Again cardiomegaly, hepatosplenomegaly, sigmoid diverticulosis, calcified uterine fibroids, and chronic bony findings.
[2021-12-28 15:03] LABS: Slide Review 1 YES
[2021-12-28 15:20] LABS: Appearance CLEAR (CLEAR); Bacteria FEW /HPF (NEGATIVE); Bilirubin NEGATIVE (NEGATIVE); Blood SMALL Ery/ul (0-5); Epithelial Cells RARE /HPF (FEW); Glucose NEGATIVE (NEGATIVE); Ketones NEGATIVE (NEGATIVE); Leukocyte Esterase TRACE (NEGATIVE); Mucus SLIGHT /HPF (NEGATIVE); Nitrite NEGATIVE (NEGATIVE); Protein,Urine Dip 100 (Negative); Specific Gravity 1.023 (1.005-1.025); Urobilinogen 2 mg/dL (0-1); WBC 26-50 /HPF (0-5)
--- NOTE | 2021-12-28 15:50 | ERPHSYRPT ---
- History of Present Illness Time Seen by Provider: 12/28/21 13:25 Historian: patient Exam Limitations: no limitations Patient Subjective Stated Complaint: pt here for left sided abd pain with vomiting for 3 days now, Triage Nursing Assessment: pt arrived per ambulance, alert, resp labored at times, skin w/d/p. face mask in place , abd soft and tender to touch, edema not lower legs that pt states is normal for her Physician History: Patient is a 71-year-old white female who presents with severe abdominal pain particularly in the left side and flank and repeated vomiting. Her blood thinner is present she is on atrial fibrillation she has 36 hours of pain and she noted blood in her urine she also has a history of diverticulitis. Timing/Duration: hour(s) (36) Activities at Onset: none Quality: cramping, stabbing Abdominal Pain Onset Location: LLQ (Left flank), flank Severity of Pain-Max: severe Severity of Pain-Current: severe Modifying Factors: Improves With: nothing Associated Symptoms: back, nausea, vomiting Previous symptoms: no prior history Allergies/Adverse Reactions: Tetanus Vaccines and Toxoid Allergy (Severe, Verified 12/28/21 13:26) Anaphylactic Reaction pravastatin [From Pravachol] Allergy (Intermediate, Verified 12/28/21 13:26) Muscle Aches oxycodone Adverse Reaction (Severe, Verified 12/28/21 13:26) Irregular Heart Beat Home Medications: Metoprolol Succinate 25 mg Xl* [Toprol-Xl 25MG Tablets] 25 mg PO DAILY 05/05/19 [History] Sertraline HCl 50 mg [Zoloft 50 mg Tablet] 100 mg PO HS 05/05/19 [History] lisinopriL [Zestril] 2.5 mg PO DAILY 05/05/19 [History] Gabapentin [Neurontin] 300 mg PO BID 11/02/20 [History] Apixaban [Eliquis] 5 mg PO BID 11/08/20 [History] Aspirin EC 81 mg [Ecotrin 81 mg] 81 mg PO DAILY 11/08/20 [History] Budesonide/Formoterol Fumarate [Budesonide-Formoterol 160-4.5] 2 puffs PO DAILY 11/08/20 [History] Bumetanide 1 mg [Bumex 1 mg] 2 mg PO UD 11/08/20 [History] Cholecalciferol (Vitamin D3) [Vitamin D3] 5,000 unit PO DAILY 11/08/20 [History] Ferrous Sulfate [Iron] 325 mg PO HS 11/08/20 [History] Hydroxychloroquine Sulfate 200 mg PO BID 11/08/20 [History] L.acidoph,Paracasei, B.lactis [Probiotic] 1 each PO HS 11/08/20 [History] Magnesium 250 mg PO BID 11/08/20 [History] Metformin HCl 500 mg [Glucophage 500 MG] 500 mg PO DAILY 11/08/20 [History ] Mirabegron [Myrbetriq] 50 mg PO BID 11/08/20 [History] Montelukast Sodium 10 mg [Singulair 10 MG] 10 mg PO DAILY 11/08/20 [History] Potassium Chloride 10 Meq Tab* [Klor Con 10 MEQ] 10 meq PO BID 11/08/20 [History] Spironolactone 25 mg [Aldactone 25 MG] 50 mg PO DAILY 11/08/20 [History] Turmeric Root Extract [Turmeric] 500 mg PO DAILY 11/08/20 [History] Vitamin B Complex [Super B Complex] 1 cap PO DAILY 11/08/20 [History] buPROPion HCL [Wellbutrin Xl] 150 mg PO DAILY 11/08/20 [History] Hx Tetanus, Diphtheria Vaccination/Date Given: No Hx Influenza Vaccination/Date Given: Yes Hx Pneumococcal Vaccination/Date Given: No Immunizations Up to Date: Yes Travel Risk - International Travel Have you traveled outside of the country in past 3 weeks: No - Coronavirus Screening Are you exhibiting any of the following symptoms?: Yes Symptoms: Fever, Vomiting/Diarrhea Close contact with a COVID-19 positive Pt in past 14-21 Days: No - Vaccine Status Have you recieved a Covid-19 vaccination: Yes 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 - Review of Systems Constitutional: No Fever, No Chills Eyes: No Symptoms Ears, Nose, & Throat: No Symptoms Respiratory: No Cough, No Dyspnea Cardiac: No Chest Pain, No Edema, No Syncope Abdominal/Gastrointestinal: Abdominal Pain, Nausea, Vomiting, No Diarrhea Genitourinary Symptoms: Hematuria, Flank Pain, No Dysuria Musculoskeletal: No Back Pain, No Neck Pain Skin: No Rash Neurological: No Dizziness, No Focal Weakness, No Sensory Changes Psychological: No Symptoms Endocrine: No Symptoms All Other Systems: Reviewed and Negative - Past Medical History Pertinent Past Medical History: Yes Neurological History: No Pertinent History ENT History: No Pertinent History Cardiac History: Congenital Heart Disease, Congestive Heart Failure, Other Respiratory History: CHF, COPD, Sleep Apnea Endocrine Medical History: No Pertinent History Musculoskeletal History: Osteoarthritis GI Medical History: Gallbladder Disease History: Other Psycho-Social History: Depression Female Reproductive Disorders: No Pertinent History Other Medical History: sjogrens syndrome, cellulitis, incontinence - Past Surgical History Past Surgical History: Yes Neuro Surgical History: No Pertinent History Cardiac: Valve Replacement Respiratory: Chest Surgery Gastrointestinal: Cholecystectomy Genitourinary: No Pertinent History Musculoskeletal: Joint Replacement, Orthopedic Surgery Female Surgical History: No Pertinent History Other Surgical History: two valve replacment, both hips replacement, rotator cuff. - Social History Smoking Status: Current every day smoker How long have you smoked: years Exposure to second hand smoke: Yes Drug Use: none Patient Lives Alone: No Significant Family History: no pertinent family hx - Female History Hx Last Menstrual Period: post - Nursing Vital Signs Nursing Vital Signs: Initial Vital Signs Temperature 99.0 F 12/28/21 13:15 Pulse Rate 95 H 12/28/21 13:15 Respiratory Rate 32 H 12/28/21 13:15 Blood Pressure 130/81 12/28/21 13:15 O2 Sat by Pulse Oximetry 95 12/28/21 13:15 Pain Scale Pain Intensity 6 - Physical Exam General Appearance: severe distress, alert Eye Exam: PERRL/EOMI, eyes nml inspection Ears, Nose, Throat Exam: normal ENT inspection, pharynx normal, moist mucous membranes Neck Exam: normal inspection, non-tender, supple, full range of motion Respiratory Exam: normal breath sounds, lungs clear, No respiratory distress Cardiovascular Exam: regular rate/rhythm, normal heart sounds Gastrointestinal/Abdomen Exam: tenderness, guarding, rebound, No mass Back Exam: normal inspection, normal range of motion, No CVA tenderness, No vertebral tenderness Extremity Exam: normal inspection, normal range of motion, pelvis stable Neurologic Exam: alert, oriented x 3, cooperative, normal mood/affect, nml cerebellar function, sensation nml, No motor deficits Skin Exam: normal color, warm, dry SpO2: 96 - Course Nursing assessment & vital signs reviewed: Yes - CT Exams Abdomen/Pelvis CT Interpretation: Other (5 to 6 mm distal left ureteral stone with high-grade obstruction) Ordered Tests: Active Orders 24 hr Category Date Time Status EKG-ER Only STAT Care 12/28/21 13:23 Active IV Insertion STAT Care 12/28/21 13:23 Active ABDOMEN AND PELVIS W/0 CONTRAS [CT] Stat Exams 12/28/21 13:24 Completed CHEST 1 VIEW (PORTABLE) Stat Exams 12/28/21 13:24 Completed AMYLASE Stat Lab 12/28/21 13:45 Completed BLOOD CULTURE Stat Lab 12/28/21 13:50 Received CBC W DIFF Stat Lab 12/28/21 13:23 Completed CMP Stat Lab 12/28/21 13:45 Completed CULTURE,URINE Stat Lab 12/28/21 14:32 Ordered FECAL OCCULT BLOOD - SCREENING Stat Lab 12/28/21 13:23 Ordered LIPASE Stat Lab 12/28/21 13:45 Completed Lactic Acid Stat Lab 12/28/21 13:23 Completed PROTIME WITH INR Stat Lab 12/28/21 13:23 Completed TROPONIN Q3H Lab 12/28/21 13:40 Completed TROPONIN Q3H Lab 12/28/21 16:30 Ordered TROPONIN Q3H Lab 12/28/21 19:30 Ordered TROPONIN Q3H Lab 12/28/21 22:30 Ordered TROPONIN Q3H Lab 12/29/21 01:30 Ordered UA W/RFX UR CULTURE Stat Lab 12/28/21 14:32 Completed Medication Summary Discontinued Medications Generic Name Dose Route Start Last Admin Trade Name Juan Carlos PRN Reason Stop Dose Admin Fentanyl Citrate 100 mcg 12/28/21 13:23 12/28/21 13:35 Fentanyl Citrate 100 Mcg/2 Ml* Vial IV 12/28/21 13:24 100 mcg STAT ONE Administration Fentanyl Citrate Confirm 12/28/21 13:32 Fentanyl Citrate 100 Mcg/2 Ml* Vial Administered 12/28/21 13:33 Dose 100 mcg .ROUTE .STK-MED ONE Fentanyl Citrate 100 mcg 12/28/21 14:52 12/28/21 15:05 Fentanyl Citrate 100 Mcg/2 Ml* Vial IV 12/28/21 14:53 100 mcg STAT ONE Administration Fentanyl Citrate Confirm 12/28/21 15:01 Fentanyl Citrate 100 Mcg/2 Ml* Vial Administered 12/28/21 15:02 Dose 100 mcg .ROUTE .STK-MED ONE Sodium Chloride 1,000 mls @ 999 mls/hr 12/28/21 13:23 12/28/21 14:52 Sodium Chloride 0.9% 1000 Ml IV 12/28/21 14:23 Infused .Q1H1M STA Infusion Sodium Chloride Confirm 12/28/21 13:32 Sodium Chloride 0.9% 1000 Ml Administered 12/28/21 13:33 Dose 1,000 mls @ ud .ROUTE .STK-MED ONE Ondansetron HCl 4 mg 12/28/21 13:23 12/28/21 13:35 Ondansetron Hcl 4 Mg/2 Ml Vial IV 12/28/21 13:24 4 mg STAT ONE Administration Ondansetron HCl Confirm 12/28/21 13:32 Ondansetron Hcl 4 Mg/2 Ml Vial Administered 12/28/21 13:33 Dose 4 mg .ROUTE .STK-MED ONE Lab/Rad Data: Laboratory Result Diagrams 12/28/21 13:23 12/28/21 13:45 Laboratory Results 12/28/21 12/28/21 12/28/21 Range/Units 14:32 13:45 13:40 WBC (4.0-10.5) K/mm3 RBC (4.1-5.4) M/mm3 Hgb (12.0-16.0) gm/dl Hct (35-47) % MCV (78-100) fl MCH (26-32) pg MCHC (32-36) g/dl RDW (11.5-14.0) % Plt Count (150-450) K/mm3 MPV (7.5-11.0) fl Gran % (36.0-66.0) % Eos # (Auto) (0-0.5) Absolute Lymphs (auto) (1.0-4.6) Absolute Monos (auto) (0.0-1.3) Lymphocytes % (24.0-44.0) % Monocytes % (0.0-12.0) % Eosinophils % (0.00-5.0) % Basophils % (0.0-0.4) % Absolute Granulocytes (1.4-6.9) Basophils # (0-0.4) PT (9.4-12.5) SECONDS INR (0.8-3.0) Sodium 135 L (137-145) mmol/L Potassium 4.2 (3.5-5.1) mmol/L Chloride 105 (98-107) mmol/L Carbon Dioxide 19 L (22-30) mmol/L Anion Gap 14.7 (5-15) MEQ/L BUN 14 (7-17) mg/dL Creatinine 1.05 H (0.52-1.04) mg/dL Estimated GFR 54.9 ML/MIN Glucose 110 H (74-106) mg/dL Lactic Acid (0.4-2.0) Calcium 11.0 H (8.4-10.2) mg/dL Total Bilirubin 1.70 H (0.2-1.3) mg/dL AST 24 (14-36) U/L ALT 19 (0-35) U/L Alkaline Phosphatase 41 (38-126) U/L Troponin I 0.024 (0.000-0.034) ng/mL Serum Total Protein 6.8 (6.3-8.2) g/dL Albumin 3.8 (3.5-5.0) g/dL Amylase 31 (30-110) U/L Lipase < 10 L (23-300) U/L Urine Color KAMRAN (YELLOW) Urine Appearance CLEAR (CLEAR) Urine pH 5.0 (5-6) Ur Specific [place] 1.023 (1.005-1.025) Urine Protein 100 (Negative) Urine Ketones NEGATIVE (NEGATIVE) Urine Blood SMALL (0-5) Juvencio/ul Urine Nitrite NEGATIVE (NEGATIVE) Urine Bilirubin NEGATIVE (NEGATIVE) Urine Urobilinogen 2 (0-1) mg/dL Ur Leukocyte Esterase TRACE (NEGATIVE) Urine WBC (Auto) 26-50 (0-5) /HPF Urine RBC (Auto) 11-15 (0-2) /HPF U Epithel Cells (Auto) RARE (FEW) /HPF Urine Bacteria (Auto) FEW (NEGATIVE) /HPF Urine Mucus (Auto) SLIGHT (NEGATIVE) /HPF Urine Culture Reflexed ORDERED SEPARATELY (NO) Urine Glucose NEGATIVE (NEGATIVE) mg/dL Slides for Path Review 12/28/21 12/28/21 12/28/21 Range/Units 13:23 13:23 13:23 WBC 15.0 H (4.0-10.5) K/mm3 RBC 4.75 (4.1-5.4) M/mm3 Hgb 15.6 (12.0-16.0) gm/dl Hct 45.3 (35-47) % MCV 95.4 (78-100) fl MCH 32.8 H (26-32) pg MCHC 34.4 (32-36) g/dl RDW 13.8 (11.5-14.0) % Plt Count 106 L (150-450) K/mm3 MPV 10.1 (7.5-11.0) fl Gran % 92.7 H (36.0-66.0) % Eos # (Auto) 0 (0-0.5) Absolute Lymphs (auto) 0.22 L (1.0-4.6) Absolute Monos (auto) 0.85 (0.0-1.3) Lymphocytes % 1.5 L (24.0-44.0) % Monocytes % 5.7 (0.0-12.0) % Eosinophils % 0.0 (0.00-5.0) % Basophils % 0.1 (0.0-0.4) % Absolute Granulocytes 13.93 H (1.4-6.9) Basophils # 0.01 (0-0.4) PT 18.4 H (9.4-12.5) SECONDS INR 1.56 (0.8-3.0) Sodium (137-145) mmol/L Potassium (3.5-5.1) mmol/L Chloride (98-107) mmol/L Carbon Dioxide (22-30) mmol/L Anion Gap (5-15) MEQ/L BUN (7-17) mg/dL Creatinine (0.52-1.04) mg/dL Estimated GFR ML/MIN Glucose (74-106) mg/dL Lactic Acid 3.2 H (0.4-2.0) Calcium (8.4-10.2) mg/dL Total Bilirubin (0.2-1.3) mg/dL AST (14-36) U/L ALT (0-35) U/L Alkaline Phosphatase (38-126) U/L Troponin I (0.000-0.034) ng/mL Serum Total Protein (6.3-8.2) g/dL Albumin (3.5-5.0) g/dL Amylase (30-110) U/L Lipase (23-300) U/L Urine Color (YELLOW) Urine Appearance (CLEAR) Urine pH (5-6) Ur Specific [place] (1.005-1.025) Urine Protein (Negative) Urine Ketones (NEGATIVE) Urine Blood (0-5) Juvencio/ul Urine Nitrite (NEGATIVE) Urine Bilirubin (NEGATIVE) Urine Urobilinogen (0-1) mg/dL Ur Leukocyte Esterase (NEGATIVE) Urine WBC (Auto) (0-5) /HPF Urine RBC (Auto) (0-2) /HPF U Epithel Cells (Auto) (FEW) /HPF Urine Bacteria (Auto) (NEGATIVE) /HPF Urine Mucus (Auto) (NEGATIVE) /HPF Urine Culture Reflexed (NO) Urine Glucose (NEGATIVE) mg/dL Slides for Path Review YES - Progress Progress: improved Progress Note: 12/28/21 15:50 With the discovery of high-grade obstruction with the 5 to 6 mm left ureteral stone we did contact urology at [facility] made arrangements fo r her to have outpatient surgery at [facility]. - Departure Departure Disposition: Transfer Clinical Impression: Calculus of distal left ureter Condition: Stable Critical Care Time: No Referrals: KALANI FARFAN, [Primary Care Provider] - Follow up/PCP as directed
[2021-12-28 16:21] VITALS: BP 126/98; PULSE 96; O2SAT 98
== END 2021-12-28 16:20 | disposition short-term general hospital (02) ==
LOC: ED 13:15
DX: N20.1 Calculus of ureter (principal); R10.32 Left lower quadrant pain; R11.2 Nausea with vomiting, unspecified; I50.9 Heart failure, unspecified; J44.9 Chronic obstructive pulmonary disease, unspecified; M35.00 Sjogren syndrome, unspecified; Z72.0 Tobacco use; Z79.01 Long term (current) use of anticoagulants; Z79.899 Other long term (current) drug therapy
CPT/HCPCS: 36000; 36415; 71045; 74176; 80053; 81001; 82150; 83605; 83690; 84484; 85025; 85610; 87040; 87077; 87086; 87186; 93005; 96360; 96374; 96375; 96376; 99285; J2405; J3010

== ENCOUNTER 2022-07-29 21:56 | Emergency (ER) | payer MEDICARE ==
[2022-07-29] MEDS ORDERED: Zofran 4 MG/2 ML VIAL IV ONE (22:19)
[2022-07-29] MEDS ORDERED: MORPHINE SULFATE 4 MG INJ IV ONE (22:19)
[2022-07-29] MEDS ORDERED: Zofran 4 MG/2 ML VIAL ONE (22:23)
[2022-07-29] MEDS ORDERED: MORPHINE SULFATE 4 MG INJ ONE (22:24)
[2022-07-29 22:47] LABS: Absolute Neutrophil Ct (ANC) 4.72 x10^3/uL (1.4-6.9); Basophil (Absolute #) 0.03 x10^3/uL (0-0.4); Eosinophil % 0.5 % (0.00-5.0); Eosinophil (Absolute #) 0.03 x10^3/uL (0-0.5); Hemoglobin 12.3 g/dL (12.0-16.0); Lymphocyte (Absolute #) 0.76 x10^3/uL (1.0-4.6); Lymphocytes % 12.3 % (24.0-44.0); Mean Cell Volume 79.7 fL (78-100); Mean Corpuscular Hemoglobin 24.5 pg (26-32); Mean Corpuscular Hgb Concent. 30.8 g/dL (32-36); Mean Platelet Volume 9.7 fL (7.5-11.0); Monocyte (Absolute #) 0.62 x10^3/uL (0.0-1.3); Neutrophil % 76.2 % (36.0-66.0); Platelet Count 148 x10^3/uL (150-450); Red Blood Count 5.02 x10^6/uL (4.1-5.4); Red Cell Distribution Width 16.1 % (11.5-14.0); White Blood Count 6.2 x10^3/uL (4.0-10.5)
[2022-07-29 23:00] LABS: ALBUMIN 4.2 g/dL (3.5-5.0); ALKALINE PHOSPHATASE 63 U/L (38-126); ANION GAP 12.4 MEQ/L (5-15); BLOOD UREA NITROGEN 10 mg/dL (7-17); CHLORIDE 103 mmol/L (98-107); Carbon Dioxide 24 mmol/L (22-30); Creatinine 1 0.94 mg/dL (0.52-1.04); EST GLOMERULAR FILTRATION RATE > 60.0 ML/MIN; Glucose 98 mg/dL (74-106); Potassium 4.1 mmol/L (3.5-5.1); SGOT/AST 22 U/L (14-36); SGPT/ALT 15 U/L (0-35); SODIUM 135 mmol/L (137-145); Total Protein 7.5 g/dL (6.3-8.2)
--- NOTE | 2022-07-29 23:15 | ERPHSYRPT ---
- History of Present Illness Time Seen by Provider: 07/29/22 22:02 Source: patient Exam Limitations: no limitations Patient Subjective Stated Complaint: pt states "I have this redness and swelling to my right leg. I think I have a blood clot." Triage Nursing Assessment: pt ambulated into the er; pt is axo x4; c/o rt lower leg pain; pt states 8/10 pain to RLE; rt pedal pulse present; rt lower extremity warm to the touch; redness present to RLE; discoloration to BLE; pt states she takes eliquis 5mg BID; hypertensive Physician History: 72 years old female with history of atrial fibrillation on Eliquis presented in the ER with chief complaint of right leg pain since yesterday. Patient reported initially it started to the back of the knee with some redness and erythema and gradually extending proximally and distally with moderate to severe sharp pain especially with ambulation. No fall or trauma reported. Does have chronic lower extremity edema/venous stasis but this seems more red warm and painful. No difficulty movements at ankle. Method of Injury: unknown Occurred: yesterday Quality: sharpness Severity of Pain-Max: severe Severity of Pain-Current: severe Lower Extremities Pain: leg: right, knee: right, thigh: right Modifying Factors: Worsens With: movement Associated Symptoms: No snapping sensation Allergies/Adverse Reactions: Tetanus Vaccines and Toxoid Allergy (Severe, Verified 07/29/22 22:06) Anaphylactic Reaction pravastatin [From Pravachol] Allergy (Intermediate, Verified 07/29/22 22:06) Muscle Aches oxycodone Adverse Reaction (Severe, Verified 07/29/22 22:06) Irregular Heart Beat Home Medications: Metoprolol Succinate 25 mg Xl* [Toprol-Xl 25MG Tablets] 25 mg PO DAILY 05/05/19 [History] Sertraline HCl 50 mg [Zoloft 50 mg Tablet] 100 mg PO HS 05/05/19 [History] Gabapentin [Neurontin] 300 mg PO BID 11/02/20 [History] Apixaban [Eliquis] 5 mg PO BID 11/08/20 [History] Aspirin EC 81 mg [Ecotrin 81 mg] 81 mg PO DAILY 11/08/20 [History] Budesonide/Formoterol Fumarate [Budesonide-Formoterol 160-4.5] 2 puffs PO DAILY 11/08/20 [History] Bumetanide 1 mg [Bumex 1 mg] 2 mg PO UD 11/08/20 [History] Cholecalciferol (Vitamin D3) [Vitamin D3] 5,000 unit PO DAILY 11/08/20 [History] Hydroxychloroquine Sulfate 200 mg PO BID 11/08/20 [History] L.acidoph,Paracasei, B.lactis [Probiotic] 1 each PO HS 11/08/20 [History] Magnesium 250 mg PO BID 11/08/20 [History] Montelukast Sodium 10 mg [Singulair 10 MG] 10 mg PO DAILY 11/08/20 [History] Potassium Chloride Tab* [Klor Con 10 MEQ] 10 meq PO BID 11/08/20 [History] Spironolactone 25 mg [Aldactone 25 MG] 50 mg PO DAILY 11/08/20 [History] Turmeric Root Extract [Turmeric] 500 mg PO DAILY 11/08/20 [History] Vitamin B Complex [Super B Complex] 1 cap PO DAILY 11/08/20 [History] buPROPion HCL [Wellbutrin Xl] 150 mg PO DAILY 11/08/20 [History] Atorvastatin Calcium 10 mg PO DAILY 01/05/22 [History] Cyclobenzaprine HCl 5 mg PO DAILY 01/05/22 [History] Diltiazem HCl [Diltiazem 24Hr ER] 180 mg PO DAILY 01/05/22 [History] Norethindrone Acetate [Norethindrone AC ([place]up[place])] 5 mg PO DAILY 01/05/22 [History] Phenazopyridine HCl [Pyridium 100 mg] 100 mg PO TID PRN 01/05/22 [History] Pilocarpine HCl 5 mg PO TID 01/05/22 [History] Tamsulosin HCl 0.4 mg [Flomax 0.4 MG] 0.4 mg PO DAILY 01/05/22 [History] Hx Tetanus, Diphtheria Vaccination/Date Given: No Hx Influenza Vaccination/Date Given: Yes Hx Pneumococcal Vaccination/Date Given: No Immunizations Up to Date: Yes Travel Risk - International Travel Have you traveled outside of the country in past 3 weeks: No - Coronavirus Screening Are you exhibiting any of the following symptoms?: No Close contact with a COVID-19 positive Pt in past 14-21 Days: No - Vaccine Status Have you recieved a Covid-19 vaccination: Yes 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 - Vaccination Dates Dates if Unknown: ? - Review of Systems Constitutional: No Symptoms Eyes: No Symptoms Ears, Nose, & Throat: No Symptoms Respiratory: No Symptoms Cardiac: No Symptoms Genitourinary Symptoms: No Symptoms Skin: Induration, Rash Neurological: No Symptoms Psychological: No Symptoms Hematologic/Lymphatic: No Symptoms Immunological/Allergic: No Symptoms - Past Medical History Pertinent Past Medical History: Yes Neurological History: No Pertinent History ENT History: No Pertinent History Cardiac History: Congenital Heart Disease, Congestive Heart Failure, Other Respiratory History: CHF, COPD, Sleep Apnea Endocrine Medical History: No Pertinent History Musculoskeletal History: Osteoarthritis GI Medical History: Gallbladder Disease History: Other Psycho-Social History: Depression Female Reproductive Disorders: No Pertinent History Other Medical History: sjogrens syndrome, cellulitis, incontinence - Past Surgical History Past Surgical History: Yes Neuro Surgical History: No Pertinent History Cardiac: Valve Replacement Respiratory: Chest Surgery Gastrointestinal: Cholecystectomy Genitourinary: No Pertinent History Musculoskeletal: Joint Replacement, Orthopedic Surgery Female Surgical History: No Pertinent History Other Surgical History: two valve replacment, both hips replacement, rotator cuff. - Social History Smoking Status: Current some day smoker How long have you smoked: 30 years Exposure to second hand smoke: Yes Drug Use: none Patient Lives Alone: No Significant Family History: no pertinent family hx - Nursing Vital Signs Nursing Vital Signs: Initial Vital Signs Temperature 98.6 F 07/29/22 22:06 Pulse Rate 84 07/29/22 22:06 Respiratory Rate 26 H 07/29/22 22:06 Blood Pressure 144/79 07/29/22 22:06 O2 Sat by Pulse Oximetry 99 07/29/22 22:06 Pain Scale Pain Intensity 3 - Physical Exam General Appearance: no apparent distress, alert Eyes, Ears, Nose, Throat Exam: normal ENT inspection Neck Exam: normal inspection, full range of motion Cardiovascular/Respiratory Exam: normal breath sounds, regular rate/rhythm Gastrointestinal/Abdominal Exam: non-tender Legs Exam: right leg: pain, soft tissue tenderness, bilateral leg: no evidence of injury Neuro/Tendon Exam: normal sensation, normal motor functions Mental Status Exam: alert, oriented x 3, cooperative Skin Exam: normal color SpO2 Interpretation: normal SpO2: 99 O2 Delivery: Room Air Ordered Tests: Active Orders 24 hr Category Date Time Status IV Insertion STAT Care 07/29/22 22:35 Active VENOUS UNILAT/LIMITED EXTREMIT [US] Stat Exams 07/29/22 22:20 Taken BLOOD CULTURE Stat Lab 07/29/22 22:42 Received CBC W DIFF Stat Lab 07/29/22 22:42 Completed CMP Stat Lab 07/29/22 22:42 Completed Lactic Acid Stat Lab 07/29/22 22:44 Completed PROCALCITONIN Stat Lab 07/29/22 22:42 Completed Medication Summary Discontinued Medications Generic Name Dose Route Start Last Admin Trade Name Freq PRN Reason Stop Dose Admin Cephalexin HCl 500 mg 07/29/22 23:27 07/29/22 23:33 Cephalexin Mh500 Mg Capsule PO 07/29/22 23:28 500 mg STAT ONE Administration Cephalexin HCl Confirm 07/29/22 23:31 Cephalexin Mh500 Mg Capsule Administered 07/29/22 23:32 Dose 500 mg .ROUTE .STK-MED ONE Morphine Sulfate 4 mg 07/29/22 22:19 07/29/22 22:26 Morphine Sulfate 4 Mg/Ml Injection IV 07/29/22 22:20 4 mg STAT ONE Administration Morphine Sulfate Confirm 07/29/22 22:24 Morphine Sulfate 4 Mg/Ml Injection Administered 07/29/22 22:25 Dose 4 mg .ROUTE .STK-MED ONE Ondansetron HCl 4 mg 07/29/22 22:19 07/29/22 22:25 Ondansetron Hcl 4 Mg/2 Ml Vial IV 07/29/22 22:20 4 mg STAT ONE Administration Ondansetron HCl Confirm 07/29/22 22:23 Ondansetron Hcl 4 Mg/2 Ml Vial Administered 07/29/22 22:24 Dose 4 mg .ROUTE .STK-MED ONE Lab/Rad Data: Laboratory Result Diagrams 07/29/22 22:42 07/29/22 22:42 Laboratory Results 07/29/22 07/29/22 07/29/22 Range/Units 22:44 22:42 22:42 WBC (4.0-10.5) x10^3/uL RBC (4.1-5.4) x10^6/uL Hgb (12.0-16.0) g/dL Hct (35-47) % MCV (78-100) fL MCH (26-32) pg MCHC (32-36) g/dL RDW (11.5-14.0) % Plt Count (150-450) x10^3/uL MPV (7.5-11.0) fL Gran % (36.0-66.0) % Immature Gran % (Auto) (0.00-0.4) % Nucleat RBC Rel Count (0.00-0.1) % Eos # (Auto) (0-0.5) x10^3/uL Immature Gran # (Auto) (0.00-0.03) x10^3u/L Absolute Lymphs (auto) (1.0-4.6) x10^3/uL Absolute Monos (auto) (0.0-1.3) x10^3/uL Absolute Nucleated RBC (0.00-0.01) x10^3u/L Lymphocytes % (24.0-44.0) % Monocytes % (0.0-12.0) % Eosinophils % (0.00-5.0) % Basophils % (0.0-0.4) % Absolute Granulocytes (1.4-6.9) x10^3/uL Basophils # (0-0.4) x10^3/uL Sodium 135 L (137-145) mmol/L Potassium 4.1 (3.5-5.1) mmol/L Chloride 103 (98-107) mmol/L Carbon Dioxide 24 (22-30) mmol/L Anion Gap 12.4 (5-15) MEQ/L BUN 10 (7-17) mg/dL Creatinine 0.94 (0.52-1.04) mg/dL Estimated GFR > 60.0 ML/MIN Glucose 98 (74-106) mg/dL Lactic Acid 1.6 (0.4-2.0) Calcium 10.0 (8.4-10.2) mg/dL Total Bilirubin 0.60 (0.2-1.3) mg/dL AST 22 (14-36) U/L ALT 15 (0-35) U/L Alkaline Phosphatase 63 (38-126) U/L Serum Total Protein 7.5 (6.3-8.2) g/dL Albumin 4.2 (3.5-5.0) g/dL Procalcitonin 0.062 (0.030-0.080) ng/mL 07/29/22 Range/Units 22:42 WBC 6.2 (4.0-10.5) x10^3/uL RBC 5.02 (4.1-5.4) x10^6/uL Hgb 12.3 (12.0-16.0) g/dL Hct 40.0 (35-47) % MCV 79.7 (78-100) fL MCH 24.5 L (26-32) pg MCHC 30.8 L (32-36) g/dL RDW 16.1 H (11.5-14.0) % Plt Count 148 L (150-450) x10^3/uL MPV 9.7 (7.5-11.0) fL Gran % 76.2 H (36.0-66.0) % Immature Gran % (Auto) 0.5 H (0.00-0.4) % Nucleat RBC Rel Count 0.0 (0.00-0.1) % Eos # (Auto) 0.03 (0-0.5) x10^3/uL Immature Gran # (Auto) 0.03 (0.00-0.03) x10^3u/L Absolute Lymphs (auto) 0.76 L (1.0-4.6) x10^3/uL Absolute Monos (auto) 0.62 (0.0-1.3) x10^3/uL Absolute Nucleated RBC 0.00 (0.00-0.01) x10^3u/L Lymphocytes % 12.3 L (24.0-44.0) % Monocytes % 10.0 (0.0-12.0) % Eosinophils % 0.5 (0.00-5.0) % Basophils % 0.5 (0.0-0.4) % Absolute Granulocytes 4.72 (1.4-6.9) x10^3/uL Basophils # 0.03 (0-0.4) x10^3/uL Sodium (137-145) mmol/L Potassium (3.5-5.1) mmol/L Chloride (98-107) mmol/L Carbon Dioxide (22-30) mmol/L Anion Gap (5-15) MEQ/L BUN (7-17) mg/dL Creatinine (0.52-1.04) mg/dL Estimated GFR ML/MIN Glucose (74-106) mg/dL Lactic Acid (0.4-2.0) Calcium (8.4-10.2) mg/dL Total Bilirubin (0.2-1.3) mg/dL AST (14-36) U/L ALT (0-35) U/L Alkaline Phosphatase (38-126) U/L Serum Total Protein (6.3-8.2) g/dL Albumin (3.5-5.0) g/dL Procalcitonin (0.030-0.080) ng/mL - Progress Progress: improved, pain not gone completely, re-examined Progress Note: 07/29/22 23:37 She is given symptomatic treatment for pain, on reevaluation feeling better. Has normal white count, lactate and procalcitonin. Rule out DVT per preliminary report. It seems like she is already developing cellulitis, has no bony tenderness, started on Keflex and outpatient follow-up recommended. Discussed signs symptoms of worsening needing return to ER which she seems understanding. Counseled pt/family regarding: lab results, diagnosis, need for follow-up, rad results - Departure Departure Disposition: Home Clinical Impression: Lower extremity cellulitis Condition: Stable Critical Care Time: No Referrals: KALANI FARFAN DO [Primary Care Provider] - Follow up/PCP as directed (1-2 days for reevaluation) Instructions: Cellulitis (Skin Infection), Adult (DC) Additional Instructions: Take Tylenol as needed for pain. Follow-up with primary care for reevaluation. Return to ER for worsening pain swelling redness or if develop fever chills etc. Prescriptions: Cephalexin Mh 500 mg [Keflex 500 mg] 500 mg PO TID #21 cap
[2022-07-29] MEDS ORDERED: KEFLEX 500 MG PO ONE (23:27)
[2022-07-29] MEDS ORDERED: KEFLEX 500 MG ONE (23:31)
[2022-07-29 23:46] VITALS: BP 105/53; PULSE 70; O2SAT 97
--- NOTE | 2022-07-30 08:38 | XRAY ---
Indication: Pain. Two-dimensional sonogram and color Doppler imaging of the major venous vessels of the right leg performed. Comparison: None No thrombus seen in the examined deep venous vessels of the right leg including greater saphenous vein. Veins demonstrate normal compressibility. Venous waveforms are normal with and without augmentation. Impression: Right leg negative for DVT. Comment: Preliminary report was given.
== END 2022-07-29 23:50 | disposition home or self-care (01) ==
LOC: ED 21:56
DX: L03.115 Cellulitis of right lower limb (principal); M79.604 Pain in right leg; J44.9 Chronic obstructive pulmonary disease, unspecified; Z72.0 Tobacco use; Z79.01 Long term (current) use of anticoagulants; Z79.899 Other long term (current) drug therapy
CPT/HCPCS: 36000; 36415; 80053; 83605; 84145; 85025; 87040; 93971; 96374; 96375; 99284; J2270; J2405; A9270-GY

== ENCOUNTER 2023-01-07 14:10 | Emergency (ER) | payer MEDICARE ==
--- NOTE | 2023-01-07 14:51 | ERPHSYRPT ---
- History of Present Illness Time Seen by Provider: 01/07/23 14:50 Historian: patient Exam Limitations: no limitations Patient Subjective Stated Complaint: rectal pain Triage Nursing Assessment: Patient ambulated back to ED and transferred self to bed. Patient A+O X3. Patient's skin pink, warm and dry. Patient complains of rectal pain that started Friday. Patient states she has been constipated and has been straining to have a bowel movement and thinks her rectum is prolapsed. Patient states she also has hemmoroids. Patient states she has pain when urinating. Physician History: This is a 72-year-old white female patient who presents with 2-day history of constipation and associated rectal pressure/pain. The symptoms are worse when she is standing up and sitting down and improved when she is lying flat. Patie nt states that she has tried MiraLAX without much benefit. Patient has not had a colonoscopy in 10 years at least per patient report. Patient has a history of hypertension, morbidly obesity, hyperlipidemia, arrhythmias, liver disease, osteoarthritis, depression, cardiac valve replacement x2. Patient continues to smoke cigarettes. Patient denies chest pain. She denies shortness of breath. She denies abdominal pain at this time. Timing/Duration: day(s) (2) Activities at Onset: none Quality: aching (Perirectal), pressure (Perirectal) Pain Radiation: no radiation Severity of Pain-Max: moderate Severity of Pain-Current: mild (To moderate when up and ambulating) Associated Symptoms: other (Afraid to eat for fear of rectal pain and pressure when attempting to have a bowel movement.), No diarrhea, No fever/chills, No shortness of breath, No vomiting Previous symptoms: no prior history Allergies/Adverse Reactions: Tetanus Vaccines and Toxoid Allergy (Severe, Verified 01/07/23 14:38) Anaphylactic Reaction pravastatin [From Pravachol] Allergy (Intermediate, Verified 01/07/23 14:38) Muscle Aches oxycodone Adverse Reaction (Severe, Verified 01/07/23 14:38) Irregular Heart Beat Home Medications: Metoprolol Succinate 25 mg Xl* [Toprol-Xl 25MG Tablets] 25 mg PO DAILY 05/05/19 [History] Sertraline HCl 50 mg [Zoloft 50 mg Tablet] 100 mg PO HS 05/05/19 [History] Gabapentin [Neurontin] 300 mg PO BID 11/02/20 [History] Apixaban [Eliquis] 5 mg PO BID 11/08/20 [History] Aspirin EC 81 mg [Ecotrin 81 mg] 81 mg PO DAILY 11/08/20 [History] Budesonide/Formoterol Fumarate [Budesonide-Formoterol 160-4.5] 2 puffs PO DAILY 11/08/20 [History] Bumetanide 1 mg [Bumex 1 mg] 2 mg PO UD 11/08/20 [History] Cholecalciferol (Vitamin D3) [Vitamin D3] 5,000 unit PO DAILY 11/08/20 [History] Hydroxychloroquine Sulfate 200 mg PO BID 11/08/20 [History] L.acidoph,Paracasei, B.lactis [Probiotic] 1 each PO HS 11/08/20 [History] Magnesium 250 mg PO BID 11/08/20 [History] Montelukast Sodium 10 mg [Singulair 10 MG] 10 mg PO DAILY 11/08/20 [History] Potassium Chloride Tab* [Klor Con 10 MEQ] 10 meq PO BID 11/08/20 [History] Spironolactone 25 mg [Aldactone 25 MG] 50 mg PO DAILY 11/08/20 [History] Turmeric Root Extract [Turmeric] 500 mg PO DAILY 11/08/20 [History] Vitamin B Complex [Super B Complex] 1 cap PO DAILY 11/08/20 [History] buPROPion HCL [Wellbutrin Xl] 150 mg PO DAILY 11/08/20 [History] Atorvastatin Calcium 10 mg PO DAILY 01/05/22 [History] Cyclobenzaprine HCl 5 mg PO DAILY 01/05/22 [History] Diltiazem HCl [Diltiazem 24Hr ER] 180 mg PO DAILY 01/05/22 [History] Norethindrone Acetate [Norethindrone AC (Lupaneta)] 5 mg PO DAILY 01/05/22 [History] Phenazopyridine HCl [Pyridium 100 mg] 100 mg PO TID PRN 01/05/22 [History] Pilocarpine HCl 5 mg PO TID 01/05/22 [History] Tamsulosin HCl 0.4 mg [Flomax 0.4 MG] 0.4 mg PO DAILY 01/05/22 [History] Hx Tetanus, Diphtheria Vaccination/Date Given: No Hx Influenza Vaccination/Date Given: Yes Hx Pneumococcal Vaccination/Date Given: No Immunizations Up to Date: Yes Travel Risk - International Travel Have you traveled outside of the country in past 3 weeks: No - Coronavirus Screening Are you exhibiting any of the following symptoms?: No Close contact with a COVID-19 positive Pt in past 14-21 Days: No - Vaccine Status Have you recieved a Covid-19 vaccination: Yes [employer] 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 - Review of Systems Constitutional: No Symptoms Eyes: No Symptoms Ears, Nose, & Throat: No Symptoms Respiratory: No Symptoms Cardiac: No Symptoms Abdominal/Gastrointestinal: Other (Perirectal pain and pressure) Genitourinary Symptoms: No Symptoms Musculoskeletal: No Symptoms Skin: No Symptoms Neurological: No Symptoms Psychological: No Symptoms Endocrine: No Symptoms Hematologic/Lymphatic: No Symptoms Immunological/Allergic: No Symptoms All Other Systems: Reviewed and Negative - Past Medical History Pertinent Past Medical History: Yes Neurological History: Peripheral Neuropathy ENT History: No Pertinent History Cardiac History: Arrhythmia, Other Respiratory History: Other Endocrine Medical History: Liver Disease Musculoskeletal History: Osteoarthritis GI Medical History: Gallbladder Disease History: Other Psycho-Social History: Depression Female Reproductive Disorders: No Pertinent History Other Medical History: B KEVIN, BROKEN FEMUR, MULTIPLE HEART SURGERIES. B LE CELLULITIS. FATTY LIVER. SOB. VALVE REPLACEMENT IN 2012. OPEN HEART SURGERY. - Past Surgical History Past Surgical History: Yes Neuro Surgical History: No Pertinent History Cardiac: Valve Replacement Respiratory: Chest Surgery Gastrointestinal: Cholecystectomy Genitourinary: No Pertinent History Musculoskeletal: Joint Replacement, Orthopedic Surgery Female Surgical History: No Pertinent History Other Surgical History: two valve replacment, both hips replacement, rotator cuff. - Social History Smoking Status: Current some day smoker How long have you smoked: 30 years Exposure to second hand smoke: Yes Drug Use: none Patient Lives Alone: No Significant Family History: no pertinent family hx - Nursing Vital Signs Nursing Vital Signs: Initial Vital Signs Temperature 97.6 F 01/07/23 14:38 Pulse Rate 81 01/07/23 14:38 Respiratory Rate 18 01/07/23 14:38 Blood Pressure 143/72 01/07/23 14:38 O2 Sat by Pulse Oximetry 97 01/07/23 14:38 Pain Scale Pain Intensity 3 - Physical Exam General Appearance: no apparent distress, alert, anxiety, obese Eye Exam: PERRL/EOMI, eyes nml inspection Ears, Nose, Throat Exam: normal ENT inspection, moist mucous membranes Neck Exam: normal inspection, non-tender, supple, full range of motion Respiratory Exam: normal breath sounds, lungs clear, airway intact, No chest tenderness, No respiratory distress Cardiovascular Exam: regular rate/rhythm, normal heart sounds, normal peripheral pulses Gastrointestinal/Abdomen Exam: soft, normal bowel sounds, No tenderness, No guarding Rectal Exam: normal rectal tone, hemorrhoids (External nonthrombosed), other (No evidence of perianal hernias or masses) Back Exam: normal inspection, normal range of motion, No CVA tenderness, No vertebral tenderness Extremity Exam: normal inspection, normal range of motion, pelvis stable Neurologic Exam: alert, oriented x 3, cooperative, detective lieutenant II-XII nml as tested, normal mood/affect, nml cerebellar function, nml station & gait, sensation nml Skin Exam: normal color, warm, dry Lymphatic Exam: No adenopathy SpO2 Interpretation: normal SpO2: 97 O2 Delivery: Room Air - Course Nursing assessment & vital signs reviewed: Yes Ordered Tests: Active Orders 24 hr Category Date Time Status Enema STAT Care 01/07/23 16:50 Active ABDOMEN AND PELVIS W/0 CONTRAS [CT] Stat Exams 01/07/23 15:16 Completed AMYLASE Stat Lab 01/07/23 15:54 Completed CBC W DIFF Stat Lab 01/07/23 15:54 Completed CMP Stat Lab 01/07/23 15:54 Completed CULTURE,URINE Stat Lab 01/07/23 15:21 Received LIPASE Stat Lab 01/07/23 15:54 Completed UA W/RFX UR CULTURE Stat Lab 01/07/23 15:21 Completed Lab/Rad Data: Laboratory Result Diagrams 01/07/23 15:54 01/07/23 15:54 Laboratory Results 01/07/23 01/07/23 01/07/23 Range/Units 15:54 15:54 15:54 WBC 7.8 (4.0-10.5) x10^3/uL RBC 5.40 (4.1-5.4) x10^6/uL Hgb 12.7 (12.0-16.0) g/dL Hct 41.8 (35-47) % MCV 77.4 L (78-100) fL MCH 23.5 L (26-32) pg MCHC 30.4 L (32-36) g/dL RDW 18.3 H (11.5-14.0) % Plt Count 197 (150-450) x10^3/uL MPV 9.5 (7.5-11.0) fL Gran % 79.4 H (36.0-66.0) % Immature Gran % (Auto) 0.4 (0.00-0.4) % Nucleat RBC Rel Count 0.0 (0.00-0.1) % Eos # (Auto) 0.10 (0-0.5) x10^3/uL Immature Gran # (Auto) 0.03 (0.00-0.03) x10^3u/L Absolute Lymphs (auto) 0.82 L (1.0-4.6) x10^3/uL Absolute Monos (auto) 0.62 (0.0-1.3) x10^3/uL Absolute Nucleated RBC 0.00 (0.00-0.01) x10^3u/L Lymphocytes % 10.5 L (24.0-44.0) % Monocytes % 7.9 (0.0-12.0) % Eosinophils % 1.3 (0.00-5.0) % Basophils % 0.5 (0.0-0.4) % Absolute Granulocytes 6.23 (1.4-6.9) x10^3/uL Basophils # 0.04 (0-0.4) x10^3/uL Sodium 136 L (137-145) mmol/L Potassium 4.0 (3.5-5.1) mmol/L Chloride 107 (98-107) mmol/L Carbon Dioxide 25 (22-30) mmol/L Anion Gap 7.9 (5-15) MEQ/L BUN 8 (7-17) mg/dL Creatinine 0.73 (0.52-1.04) mg/dL Estimated GFR > 60.0 ML/MIN Glucose 102 (74-106) mg/dL Calcium 10.1 (8.4-10.2) mg/dL Total Bilirubin 0.50 (0.2-1.3) mg/dL AST 19 (14-36) U/L ALT 12 (0-35) U/L Alkaline Phosphatase 93 (38-126) U/L Serum Total Protein 7.8 (6.3-8.2) g/dL Albumin 4.3 (3.5-5.0) g/dL Amylase 60 (30-110) U/L Lipase 38 (23-300) U/L Urine Color (Yellow) Urine Appearance (Clear) Urine pH (4.6-8.0) Ur Specific Teaberry (1.005-1.030) Urine Protein (Negative) Urine Glucose (UA) (Negative) mg/dL Urine Ketones (Negative) Urine Blood (Negative) Urine Nitrite (Negative) Urine Bilirubin (Negative) Urine Urobilinogen (0.2) mg/dL Ur Leukocyte Esterase (Negative) Urine Microscopic RBC (0-5) /HPF Urine Microscopic WBC (0-5) /HPF Ur Epithelial Cells (None Seen) /HPF Urine Bacteria (None Seen) /HPF Urine Culture Reflexed (NO) 01/07/23 Range/Units 15:21 WBC (4.0-10.5) x10^3/uL RBC (4.1-5.4) x10^6/uL Hgb (12.0-16.0) g/dL Hct (35-47) % MCV (78-100) fL MCH (26-32) pg MCHC (32-36) g/dL RDW (11.5-14.0) % Plt Count (150-450) x10^3/uL MPV (7.5-11.0) fL Gran % (36.0-66.0) % Immature Gran % (Auto) (0.00-0.4) % Nucleat RBC Rel Count (0.00-0.1) % Eos # (Auto) (0-0.5) x10^3/uL Immature Gran # (Auto) (0.00-0.03) x10^3u/L Absolute Lymphs (auto) (1.0-4.6) x10^3/uL Absolute Monos (auto) (0.0-1.3) x10^3/uL Absolute Nucleated RBC (0.00-0.01) x10^3u/L Lymphocytes % (24.0-44.0) % Monocytes % (0.0-12.0) % Eosinophils % (0.00-5.0) % Basophils % (0.0-0.4) % Absolute Granulocytes (1.4-6.9) x10^3/uL Basophils # (0-0.4) x10^3/uL Sodium (137-145) mmol/L Potassium (3.5-5.1) mmol/L Chloride (98-107) mmol/L Carbon Dioxide (22-30) mmol/L Anion Gap (5-15) MEQ/L BUN (7-17) mg/dL Creatinine (0.52-1.04) mg/dL Estimated GFR ML/MIN Glucose (74-106) mg/dL Calcium (8.4-10.2) mg/dL Total Bilirubin (0.2-1.3) mg/dL AST (14-36) U/L ALT (0-35) U/L Alkaline Phosphatase (38-126) U/L Serum Total Protein (6.3-8.2) g/dL Albumin (3.5-5.0) g/dL Amylase (30-110) U/L Lipase (23-300) U/L Urine Color Yellow (Yellow) Urine Appearance Clear (Clear) Urine pH 7.0 (4.6-8.0) Ur Specific Teaberry <=1.005 (1.005-1.030) Urine Protein Negative (Negative) Urine Glucose (UA) Negative (Negative) mg/dL Urine Ketones Negative (Negative) Urine Blood Small A (Negative) Urine Nitrite Negative (Negative) Urine Bilirubin Negative (Negative) Urine Urobilinogen 0.2 (0.2) mg/dL Ur Leukocyte Esterase Moderate A (Negative) Urine Microscopic RBC 0-2 (0-5) /HPF Urine Microscopic WBC 11-20 A (0-5) /HPF Ur Epithelial Cells None Seen (None Seen) /HPF Urine Bacteria Moderate A (None Seen) /HPF Urine Culture Reflexed YES (NO) - Progress Progress: improved, pain not gone completely, re-examined Progress Note: 01/07/23 17:14 CAT scan of the abdomen and pelvis without contrast shows a small supraumbilical ventral hernia containing fat. There is new rectal fecal impaction. There is no evidence of abdominal aortic aneurysm. 01/07/23 17:15 Patient's level of medical complexity is moderate. This is based on the patient's complaint, history provided by the patient and additional history provided by the patient's daughter. This is also based on the patient's physical exam findings. The above prompted work-up to include laboratory data, urinalysis and CAT scan of the abdomen pelvis. The results of this work-up were discussed with the family and the patient. I reviewed the work-up results as well. Based on the results, we opted for soapsuds enema. 01/07/23 17:29 Patient does not want to stay for a soapsuds enema. She wants to do the enema rectally at home. I do not think this is unreasonable. Counseled pt/family regarding: lab results, diagnosis, need for follow-up, rad results Medical Desision Making - Independent Historian Additional History obtained from: Child - Discussion of managment Reviewed:: Test results (Reviewed with patient and daughter) Agreed on:: Treatment plan (Reviewed with patient and daughter), need for f ollow-up (Reviewed with patient and daughter) - Diagnostic Testing Diagnostic Testing: Diagnostic tests were ordered,analyzed, and reviewed by me and used in my medical decision making for this patient. Radiologic studies (if ordered) were read by me initially then discussed with the radiologist . - Risk of complications Low Risk: Low risk of morbidity from additional dx testing or treatment - Departure Departure Disposition: Home Clinical Impression: Fecal impaction in rectum, Constipation Condition: Stable Critical Care Time: No Referrals: KALANI FARFAN, [Primary Care Provider] - Follow up/PCP as directed Additional Instructions: Drink clear liquid diet for the next 24 hours. Use MiraLAX each morning x3 mornings. Use the fleets enema tonight that we provided you in the emergency department. Follow-up with your primary care provider tomorrow and make arranges for follow-up appointment. Return to the emergency department if symp toms worsen.
[2023-01-07 15:27] LABS: Bilirubin Negative (Negative); Blood Small (Negative); Glucose, Urine Negative (Negative); Ketones Negative (Negative); Leukocyte Esterase Moderate (Negative); Nitrite Negative (Negative); Protein,Urine Dip Negative (Negative); Specific Gravity <=1.005 (1.005-1.030); Urobilinogen 0.2 mg/dL (0.2)
[2023-01-07 15:40] LABS: Bacteria Moderate /HPF (None Seen); Epithelial Cells None Seen /HPF (None Seen); RBC 0-2 /HPF (0-5)
[2023-01-07 15:41] LABS: ADD URINE CULTURE? YES (NO)
[2023-01-07 15:42] LABS: Appearance Clear (Clear)
[2023-01-07 15:53] LABS: Absolute Neutrophil Ct (ANC) 6.23 x10^3/uL (1.4-6.9); BASOPHIL % 0.5 % (0.0-0.4); Basophil (Absolute #) 0.04 x10^3/uL (0-0.4); Eosinophil % 1.3 % (0.00-5.0); Hematocrit 41.8 % (35-47); Hemoglobin 12.7 g/dL (12.0-16.0); IMMATURE GRAN # 0.03 x10^3u/L (0.00-0.03); IMMATURE GRAN % 0.4 % (0.00-0.4); Lymphocyte (Absolute #) 0.82 x10^3/uL (1.0-4.6); Lymphocytes % 10.5 % (24.0-44.0); Mean Cell Volume 77.4 fL (78-100); Mean Corpuscular Hemoglobin 23.5 pg (26-32); Mean Corpuscular Hgb Concent. 30.4 g/dL (32-36); Mean Platelet Volume 9.5 fL (7.5-11.0); Monocyte (Absolute #) 0.62 x10^3/uL (0.0-1.3); Monocytes % 7.9 % (0.0-12.0); Neutrophil % 79.4 % (36.0-66.0); Platelet Count 197 x10^3/uL (150-450); Red Cell Distribution Width 18.3 % (11.5-14.0); White Blood Count 7.8 x10^3/uL (4.0-10.5)
[2023-01-07 16:07] LABS: ALBUMIN 4.3 g/dL (3.5-5.0); ALKALINE PHOSPHATASE 93 U/L (38-126); ANION GAP 7.9 MEQ/L (5-15); BLOOD UREA NITROGEN 8 mg/dL (7-17); CHLORIDE 107 mmol/L (98-107); Calcium 10.1 mg/dL (8.4-10.2); Carbon Dioxide 25 mmol/L (22-30); Creatinine 1 0.73 mg/dL (0.52-1.04); EST GLOMERULAR FILTRATION RATE > 60.0 ML/MIN; Glucose 102 mg/dL (74-106); SGOT/AST 19 U/L (14-36); SGPT/ALT 12 U/L (0-35); SODIUM 136 mmol/L (137-145); Total Protein 7.8 g/dL (6.3-8.2)
--- NOTE | 2023-01-07 16:20 | XRAY ---
Indication: Rectal pressure. Blood in stool. Hemorrhoids. Multiple contiguous axial images obtained through the abdomen and pelvis without contrast. Comparison: December 28, 2021 Lung bases clear of infiltrate and effusion. Heart remains enlarged. Pelvis again limited due to extreme beam artifact from bilateral hip prostheses. Noncontrasted stomach and bowel loops nonobstructed again with sigmoid diverticulosis without diverticulitis. Rectum demonstrates new mild fecal impaction. Nonobstructing punctate calculus in each kidney. Again incidental 19.7 cm hepatomegaly, 12.8 cm splenomegaly, calcified uterine fibroids, and cholecystectomy. No free fluid/air. Remaining liver, pancreas, spleen, adrenal glands, kidneys, ureters, and bladder are unremarkable for noncontrast exam. Stable mild scattered aortoiliac calcifications without AAA. Osseous structures intact again with osteopenia, mild degenerative changes throughout the spine, and L2 vertebral hemangioma. Stable small supraumbilical fatty ventral hernia. Impression: 1. Again extreme beam artifact from bilateral total hip arthroplasty limits exam. 2. New rectal fecal impaction. 3. Again chronic findings including cardiomegaly, sigmoid diverticulosis, hepatosplenomegaly, calcified uterine fibroids, small fatty ventral hernia, and chronic bony findings.
[2023-01-07 16:52] LABS: AMYLASE 60 U/L (30-110); LIPASE 38 U/L (23-300)
[2023-01-07 17:23] VITALS: BP 116/65; PULSE 76
[2023-01-07 17:30] VITALS: O2SAT 97
== END 2023-01-07 17:39 | disposition home or self-care (01) ==
LOC: ED 14:10
DX: K59.00 Constipation, unspecified (principal); K62.89 Other specified diseases of anus and rectum; I10 Essential (primary) hypertension; E78.5 Hyperlipidemia, unspecified; Z79.01 Long term (current) use of anticoagulants; Z79.899 Other long term (current) drug therapy; Z72.0 Tobacco use
CPT/HCPCS: 36415; 74176; 80053; 81001; 82150; 83690; 85025; 87077; 87086; 87186; 99283

== ENCOUNTER 2023-09-18 09:59 | Emergency (ER) | payer MEDICARE ==
[2023-09-18] MEDS ORDERED: XYLOCAINE 1% HCL 20 ML MDV ONE (10:26)
[2023-09-18 11:08] VITALS: TEMP 97.7
--- NOTE | 2023-09-18 11:22 | ERPHSYRPT ---
- History of Present Illness Source: patient, family Exam Limitations: no limitations Patient Subjective Stated Complaint: Patient c/o injury to right lower outer leg than happened less than one hour ago. Patient states she shut the car door and the corner of the door caught her leg. Triage Nursing Assessment: Patient brought back to ER in a W/C with a bandage to her Right lower outer leg. She is alert and oriented. No SOB. Patient able to transfer self from chair to bed. Bandage removed; to active bleeding upon removal but old dressing noted to have a moderate amount of bright red drainage on it. Wound is open and triangular in shape measuring 2.4cm X 4.5cm. Unsure of depth. RLE is swollen; patient reports this is normal for her reporting lympadema to this extermitiy. Physician History: 73 yo WF w large R pre-tibial skin tear/laceration after hitting leg on car door. Pain is mild to moderate, and other injuries are denied. She denies other injuries and is allergic to tetanus. Method of Injury: incised Occurred: just prior to arrival Quality: constant Severity of Pain-Max: moderate Severity of Pain-Current: mild Lower Extremities Pain: leg: right Modifying Factors: Improves With: nothing Associated Symptoms: none Allergies/Adverse Reactions: Tetanus Vaccines and Toxoid Allergy (Severe, Verified 09/18/23 10:10) Anaphylactic Reaction pravastatin [From Pravachol] Allergy (Intermediate, Verified 09/18/23 10:10) Muscle Aches bee venom protein (honey bee) Allergy (Verified 09/18/23 10:10) coconut Allergy (Verified 09/18/23 10:10) strawberry Allergy (Verified 09/18/23 10:10) tomato Allergy (Verified 09/18/23 10:10) oxycodone Adverse Reaction (Severe, Verified 09/18/23 10:10) Irregular Heart Beat Home Medications: Metoprolol Succinate 25 mg Xl* [Toprol-Xl 25MG Tablets] 25 mg PO DAILY 05/05/19 [History] Sertraline HCl 50 mg [Zoloft 50 mg Tablet] 100 mg PO HS 05/05/19 [History] Gabapentin [Neurontin] 300 mg PO BID 11/02/20 [History] Apixaban [Eliquis] 5 mg PO BID 11/08/20 [History] Aspirin EC 81 mg [Ecotrin 81 mg] 81 mg PO DAILY 11/08/20 [History] Budesonide/Formoterol Fumarate [Budesonide-Formoterol 160-4.5] 2 puffs PO DAILY 11/08/20 [History] Bumetanide 1 mg [Bumex 1 mg] 2 mg PO UD 11/08/20 [History] Cholecalciferol (Vitamin D3) [Vitamin D3] 5,000 unit PO DAILY 11/08/20 [History] Hydroxychloroquine Sulfate 200 mg PO BID 11/08/20 [History] L.acidoph,Paracasei, B.lactis [Probiotic] 1 each PO HS 11/08/20 [History] Magnesium 250 mg PO BID 11/08/20 [History] Montelukast Sodium 10 mg [Singulair 10 MG] 10 mg PO DAILY 11/08/20 [History] Potassium Chloride Tab* [Klor Con 10 MEQ] 10 meq PO BID 11/08/20 [History] Spironolactone 25 mg [Aldactone 25 MG] 50 mg PO DAILY 11/08/20 [History] Turmeric Root Extract [Turmeric] 500 mg PO DAILY 11/08/20 [History] Vitamin B Complex [Super B Complex] 1 cap PO DAILY 11/08/20 [History] buPROPion HCL [Wellbutrin Xl] 150 mg PO DAILY 11/08/20 [History] Atorvastatin Calcium 10 mg PO DAILY 01/05/22 [History] Cyclobenzaprine HCl 5 mg PO DAILY 01/05/22 [History] Norethindrone Acetate [Norethindrone AC (Lupaneta)] 5 mg PO DAILY 01/05/22 [History] Phenazopyridine HCl [Pyridium 100 mg] 100 mg PO TID PRN 01/05/22 [History] Pilocarpine HCl 5 mg PO TID 01/05/22 [History] Tamsulosin HCl 0.4 mg [Flomax 0.4 MG] 0.4 mg PO DAILY 01/05/22 [History] dilTIAZem HCL [Diltiazem 24Hr ER] 180 mg PO DAILY 01/05/22 [History] Hx Tetanus, Diphtheria Vaccination/Date Given: No (Allergy to Tetanus) Hx Influenza Vaccination/Date Given: Yes Hx Pneumococcal Vaccination/Date Given: Yes Immunizations Up to Date: Yes Travel Risk - International Travel Have you traveled outside of the country in past 3 weeks: No - Coronavirus Screening Are you exhibiting any of the following symptoms?: No Close contact with a COVID-19 positive Pt in past 14-21 Days: No - Vaccine Status Have you recieved a Covid-19 vaccination: Yes General Ophthalmologist: PROSimity - Vaccination Dates Dates if Unknown: ? - Review of Systems Constitutional: No Symptoms Eyes: No Symptoms Ears, Nose, & Throat: No Symptoms Respiratory: No Symptoms Cardiac: No Symptoms Abdominal/Gastrointestinal: No Symptoms Genitourinary Symptoms: No Symptoms Skin: No Symptoms Neurological: No Symptoms Psychological: No Symptoms Endocrine: No Symptoms Hematologic/Lymphatic: No Symptoms Immunological/Allergic: No Symptoms - Past Medical History Pertinent Past Medical History: Yes Neurological History: Peripheral Neuropathy ENT History: No Pertinent History Cardiac History: Arrhythmia, Other Respiratory History: Other Endocrine Medical History: Liver Disease Musculoskeletal History: Fractures, Osteoarthritis GI Medical History: Gallbladder Disease History: Other Psycho-Social History: Depression Female Reproductive Disorders: No Pertinent History Other Medical History: Lymphadema, Femur fracture, BLE Cellulitis, Fatty liver - Past Surgical History Past Surgical History: Yes Neuro Surgical History: No Pertinent History Cardiac: Valve Replacement Respiratory: Chest Surgery Gastrointestinal: Cholecystectomy Genitourinary: No Pertinent History Musculoskeletal: Joint Replacement, Orthopedic Surgery Female Surgical History: No Pertinent History Other Surgical History: two valve replacment, both hips replacement, rotator cuff. - Social History Smoking Status: Current some day smoker How long have you smoked: 30 years Exposure to second hand smoke: Yes Drug Use: none Patient Lives Alone: No Significant Family History: no pertinent family hx - Nursing Vital Signs Nursing Vital Signs: Initial Vital Signs Temperature 97.7 F 09/18/23 09:59 Pulse Rate 83 09/18/23 09:59 Respiratory Rate 18 09/18/23 09:59 Blood Pressure 129/68 09/18/23 09:59 O2 Sat by Pulse Oximetry 98 09/18/23 09:59 Pain Scale Pain Intensity 0 WNL - Physical Exam General Appearance: no apparent distress Eyes, Ears, Nose, Throat Exam: normal ENT inspection, TMs normal, pharynx normal, moist mucous membranes Neck Exam: normal inspection, non-tender, supple, full range of motion Cardiovascular/Respiratory Exam: normal breath sounds, regular rate/rhythm, heart sounds normal Gastrointestinal/Abdominal Exam: non-tender, soft Back Exam: normal inspection Hips Exam: bilateral: non-tender, normal inspection, normal range of motion, no evidence of injury Legs Exam: right leg: other (Large R pre-tibal laceration/skin tear), bilateral leg: swelling (Chronic B lymphedema) Knees Exam: bilateral knee: non-tender, normal inspection, normal range of motion, no evidence of injury, ecchymosis (Chronic B LE venous stasis changes) Ankle Exam: bilateral ankle: non-tender, normal inspection, normal range of motion, no evidence of injury Foot Exam: bilateral foot: non-tender, normal inspection, normal range of motion, no evidence of injury Neuro/Tendon Exam: normal sensation, normal motor functions, normal tendon functions, responds to pain, no evidence tendon injury Mental Status Exam: alert, oriented x 3, cooperative Skin Exam: ecchymosis (Chronic B LE venous stasis changes) SpO2 Interpretation: normal SpO2: 99 O2 Delivery: Room Air Procedures - Laceration/Wound Repair Right Lower Anterior Other Wound Location: Right (R pretibial skin tear/laceration) Wound's Depth, Shape: flap, stellate Wound Explored: clean Hibiclens Prep: Yes Anesthesia: local, 1% Lidocaine Volume Anesthetic (ccs): 10 Wound Debrided: moderate Wound Repaired With: sutures Suture Size/Type: 3-0 (3.0 Ethilon x8/2.0 Ethilon x2) Number of Sutures: 10 Sterile Dressing Applied?: Yes Ordered Tests: Active Orders 24 hr Category Date Time Status Wound Care STAT Care 09/18/23 11:21 Completed Medication Summary Discontinued Medications Generic Name Dose Route Start Last Admin Trade Name Freq PRN Reason Stop Dose Admin Lidocaine HCl Confirm 09/18/23 10:26 Lidocaine Hcl 1% 20 Ml Mdv 20 Ml Ml Administered 09/18/23 10:27 Dose 10 ml .ROUTE .STK-MED ONE Lidocaine HCl 10 ml 09/18/23 11:37 09/18/23 11:38 Lidocaine Hcl 1% 20 Ml Mdv 20 Ml Ml IJ 09/18/23 11:38 10 ml STAT ONE Administration - Progress Progress: improved Progress Note: 09/18/23 12:39 Nursing note and vital signs reviewed No food or housing insecurities noted Additional history per daughters Large R pretibial laceration/skin tear cleansed w Hibiclens per nursing Anesthesia w 1% Lido wo Epi Laceration 2.4cm x4.5cm Unable to fully close laceration due to friable tissue and large skin defect Wound Care consulted and will f/u pt in 2 wks Tdap not given due to Tetanus allergy Doxycycline 100mg bid started Laceration sterilly dressed per nursing 09/18/23 12:42 09/18/23 12:44 Counseled pt/family regarding: diagnosis, need for follow-up Medical Desision Making - Independent Historian Additional History obtained from: Father - Risk of complications The pt has a mod risk of morbidity or mortality based on: Need for prescription drug management - Departure Departure Disposition: Home Clinical Impression: Laceration, Skin tear Condition: Stable Critical Care Time: No Referrals: KALANI FARFAN, [NON-STAFF PHY W/O PRIVILEGES] - Follow up/PCP as directed Instructions: Wound Care (DC) Additional Instructions: Follow up with wound care in 2 weeks Start Doxycycline twice a day for 10 days Watch for signs of infection-increasing redness/any pus/temperature greater than 100.5 Keep dry for 5 days, then gently wash 1-2 times a day with soap/water Prescriptions: Doxycycline Monohydrate 100 mg PO BID #20 cap
[2023-09-18] MEDS ORDERED: XYLOCAINE 1% HCL 20 ML MDV IJ ONE (11:37)
[2023-09-18 11:41] VITALS: BP 131/72; PULSE 72; RESP 16
[2023-09-18 12:19] VITALS: O2SAT 99
== END 2023-09-18 11:41 | disposition home or self-care (01) ==
LOC: ED 09:59
DX: S81.811A Laceration without foreign body, right lower leg, initial encounter (principal); W22.8XXA Striking against or struck by other objects, initial encounter; Z79.01 Long term (current) use of anticoagulants; Z79.899 Other long term (current) drug therapy; Z72.0 Tobacco use
CPT/HCPCS: 12002; 96372; 99283

== ENCOUNTER 2024-06-07 07:52 | Day surgery (SDC) | payer MEDICARE ==
--- NOTE | 2024-06-07 08:21 | HP ---
HISTORY OF PRESENT ILLNESS: The patient is a 73-year-old, last colonoscopy 10 years ago, needs followup for screening colonoscopy. No bloody stools. No change in bowel movements and no pain. Family history unknown, is adopted. PAST MEDICAL HISTORY: Glaucoma, hypertension, heart disease, osteopenia, hyperlipidemia, COPD, history of anemia in the past. PAST SURGICAL HISTORY: Had cholecystectomy, appendectomy, had cardiac valve replacement and revision in the past, had cardiac catheterization in the past, had femur fracture in the past, had pes planus in the past on both sides. MEDICATIONS: Vitamin D3, venlafaxine, Symbicort, spironolactone, Repatha, Seroquel, probiotic, potassium chloride, pilocarpine, montelukast, metoprolol, magnesium, lisinopril, lidocaine mucosal jelly, latanoprost eye drops, Jardiance, ipratropium/albuterol nebulizer, hydroxychloroquine, gabapentin, furosemide, ferrous fumarate, Ferretts tablets, ezetimibe, Eliquis, diltiazem, cyclobenzaprine, vitamin B12, CoQ10, vitamin B3, cranberry, alendronate, albuterol sulfate inhaler. ALLERGIES: Oxycodone, Pravachol, tetanus toxoid. SOCIAL HISTORY: Half pack per day smoker. Denies alcohol abuse. FAMILY HISTORY: Unknown, is adopted. REVIEW OF SYSTEMS: Twelve systems reviewed. No chest pain or palpitations. Other systems negative or noncontributory as above and per preadmission questionnaire. PHYSICAL EXAMINATION: VITAL SIGNS: Height 5 feet 6 inches. BMI 35.5. GENERAL: No acute distress. HEENT: Sclerae nonicteric. NECK: No JVD. CHEST: Equal excursion, nonlabored breathing. CARDIOVASCULAR: Regular rate and rhythm. ABDOMEN: Soft. EXTREMITIES: No cyanosis or edema. NEUROLOGIC: Alert and oriented, moving all extremities symmetrically. PSYCHIATRIC: Appropriate mood and affect. SKIN: Dry. RECTAL: Deferred until the time of endoscopy. IMPRESSION: Last colonoscopy 15 years or more ago, in need of followup screening colonoscopy. Feel she is a candidate. Shown the risk sheet. Risks explained in detail including but not limited to bleeding or infection, risk of bowel injury or perforation possibly requiring other procedures, risk of incomplete exam possibly requiring barium enema, risk of missed or nondiagnosis with possible need for other procedures or referral, risk of sedation or anesthesia, risk of bowel prep but not limited to. She understands. Will hold all thinners preop. Otherwise, continue other medications for heart disease, lipids, hypertension, glaucoma, COPD. PLAN: We will proceed with outpatient colonoscopy under MAC anesthesia as an outpatient.
[2024-06-07] MEDS: Lactated Ringers 1,000 ML IV SCH (08:38)
[2024-06-07] MEDS ORDERED: Xylocaine-Mpf 2% 5 Ml Vial ONE (10:32)
[2024-06-07] MEDS ORDERED: DIPRIVAN 200 MG/20 ML IV ONE ×2 (10:32→11:09)
[2024-06-07] MEDS ORDERED: Versed 2 MG/2 ML Injection ONE (10:32)
[2024-06-07 11:41] VITALS: RESP 16; TEMP 97.7; O2SAT 99
[2024-06-07 11:50] VITALS: BP 124/78; PULSE 66
--- NOTE | 2024-06-08 10:42 | OP ---
SURGERY DATE/TIME: 06/07/2024 7667 - [id number] PREOPERATIVE DIAGNOSIS: History of polyps, needs followup screening colonoscopy. POSTOPERATIVE DIAGNOSES: 1) Sigmoid colon polyp. 2) Diverticulosis. 3) Fair bowel prep. 4) Withdrawal time was approximately 9 minutes. 5) ASA class 3. PROCEDURE: Colonoscopy to the cecum with hot snare polypectomy of sigmoid colon polyp. SURGEON: Kalia Cason MD ANESTHESIA: MAC. ESTIMATED BLOOD LOSS: Minimal. INDICATIONS: As above. Consent obtained. DESCRIPTION OF PROCEDURE AND FINDINGS: The patient was taken to the endoscopy room. MAC anesthesia induced. After official time-out and no disagreement with planned procedure, digital rectal exam did not reveal any rectal masses. Videocolonoscope inserted and passed up through the slightly tortuous sigmoid, descending, transverse, ascending colon. With external pressure, scope was able to be passed through the cecum. Appendiceal orifice and valve were well visualized and photo documented. Prep overall was fair. Some liquidy semisolid stool throughout the colon which was suction irrigated as clear as possible. This slightly limited the exam for very small lesions. Scope was slowly and carefully withdrawn over the next more than 9 minutes. There were a few small diverticula in the left colon. There was in the sigmoid colon at about 35 cm, we had about a 5 mm polyp which was removed with hot snare polypectomy and brief bursts of cautery. The base appeared to be viable. Appeared adequate hemostasis at this point. Scope was withdrawn. Other than the diverticula, no signs of any other large polyps, masses, or obstructing lesions. Scope was withdrawn. There were no immediate complications. There was no family available to discuss the findings with at this time. I will see her back in the office next week.
== END 2024-06-07 12:05 | disposition home or self-care (01) ==
LOC: SDC 07:52
PROVIDERS: ATTEND Surgery
DX: Z12.11 Encounter for screening for malignant neoplasm of colon (principal); Z09 Encounter for follow-up examination after completed treatment for conditions other than malignant neoplasm; Z86.010 Personal history of colon polyps; I10 Essential (primary) hypertension; K57.30 Diverticulosis of large intestine without perforation or abscess without bleeding; D12.5 Benign neoplasm of sigmoid colon
CPT/HCPCS: 93005; 99100; J2250; J2704

== ENCOUNTER 2025-01-17 18:59 | Emergency (ER) | payer MEDICARE ==
[2025-01-17 19:59] VITALS: PULSE 61; RESP 18; TEMP 97.8
--- NOTE | 2025-01-17 20:45 | ERPHSYRPT ---
- History of Present Illness Time Seen by Provider: 01/17/25 20:40 Source: patient Exam Limitations: clinical condition Patient Subjective Stated Complaint: Pt states, "I was trying to climb a small hill without help and i fell, landed on my left side. Now my left low back and in to my left hip are hurting." Triage Nursing Assessment: pt. arrived to ER via W/C, transferred to bed with minimal assist. Able to move all four ext. but has pain when moving left lower ext. A&Ox4, Calm and Cooperative, Resp. even unlabored. Timing/Duration: today Severity: mild Associated Symptoms: denies symptoms Allergies/Adverse Reactions: Tetanus Vaccines and Toxoid Allergy (Severe, Verified 06/07/24 08:10) Anaphylactic Reaction pravastatin [From Pravachol] Allergy (Intermediate, Verified 06/07/24 08:10) Muscle Aches bee venom protein (honey bee) Allergy (Verified 06/07/24 08:10) coconut Allergy (Verified 06/07/24 08:10) strawberry Allergy (Verified 06/07/24 08:10) tomato Allergy (Verified 06/07/24 08:10) oxycodone Adverse Reaction (Severe, Verified 06/07/24 08:10) Irregular Heart Beat Home Medications: Metoprolol Succinate 25 mg Xl* [Toprol-Xl 25MG Tablets] 25 mg PO DAILY 05/05/19 [History] Budesonide/Formoterol Fumarate [Budesonide-Formoterol 160-4.5] 2 puffs PO DAILY 11/08/20 [History] Cholecalciferol (Vitamin D3) [Vitamin D3] 5,000 unit PO DAILY 11/08/20 [History] Hydroxychloroquine Sulfate 200 mg PO BID 11/08/20 [History] L.acidoph,Paracasei, B.lactis [Probiotic] 1 each PO HS 11/08/20 [History] Magnesium 250 mg PO BID 11/08/20 [History] Montelukast Sodium 10 mg [Singulair 10 MG] 10 mg PO DAILY 11/08/20 [History] Potassium Chloride Tab* [Klor Con] 10 meq PO BID 11/08/20 [History] Spironolactone 25 mg [Aldactone 25 MG] 50 mg PO DAILY 11/08/20 [History] Cyclobenzaprine HCl 5 mg PO DAILY 01/05/22 [History] Pilocarpine HCl 5 mg PO TID 01/05/22 [History] dilTIAZem HCL [Diltiazem 24Hr ER] 180 mg PO DAILY 01/05/22 [History] Albuterol Sulfate [Proair Respiclick] 90 mcg IH DAILY 05/18/24 [History] Alendronate Sodium 70 mg [Fosamax 70 MG] 70 mg PO Q7D@0600 05/18/24 [History] Empagliflozin [Jardiance] 10 mg PO DAILY 05/18/24 [History] Evolocumab [Repatha Sureclick] 140 mg SQ UD 05/18/24 [History] Ezetimibe 10 mg [Zetia 10 MG] 10 mg PO DAILY 05/18/24 [History] Ferrous Fumarate [Ferretts] 106 mg PO DAILY 05/18/24 [History] Ferrous Fumarate [Ferretts] 325 mg PO DAILY 05/18/24 [History] Furosemide [Lasix] 20 mg PO DAILY 05/18/24 [History] Ipratropium [place] 0.5 mg [Atrovent 0.5MG NEBULE] 0.5 mg IH UD 05/18/24 [History] Latanoprost [Xalatan] 1 ml OP UD 05/18/24 [History] Ubidecarenone [Co Q-10] 100 mg PO DAILY 05/18/24 [History] lisinopriL [Zestril] 2.5 mg PO DAILY 05/18/24 [History] Hx Tetanus, Diphtheria Vaccination/Date Given: No Hx Influenza Vaccination/Date Given: Yes Hx Pneumococcal Vaccination/Date Given: No Immunizations Up to Date: No Travel Risk - International Travel Have you traveled outside of the country in past 3 weeks: No - Emerging Infectious Disease Are you exhibiting symptoms associated with any current EIDs: No - Review of Systems Constitutional: No Symptoms Eyes: No Symptoms Ears, Nose, & Throat: No Symptoms Respiratory: No Symptoms Cardiac: No Symptoms Abdominal/Gastrointestinal: No Symptoms Musculoskeletal: Back Pain, Fall - Past Medical History Pertinent Past Medical History: Yes Neurological History: No Pertinent History ENT History: No Pertinent History Cardiac History: Arrhythmia, Congestive Heart Failure, Coronary Artery Disease, High Cholesterol, Hypertension, Other Respiratory History: COPD, Other Endocrine Medical History: Liver Disease Musculoskeletal History: Osteoarthritis, Other GI Medical History: Gallbladder Disease History: Other Psycho-Social History: Depression Female Reproductive Disorders: No Pertinent History Other Medical History: PMH: CURRENT EVERY DAY SMOKER, URINARY INCONTINENT, FATTY LIVER DISEASE, MACULAR DEGENERATION, LYMPEDEMEA, FUNGAL TOENAIL INFECTION. PSH: B KEVIN (R REVISION SURGERY D/T FRACTURE AND INFECTION), OPEN HEART SURGERY - Past Surgical History Past Surgical History: Yes Neuro Surgical History: No Pertinent History Cardiac: Valve Replacement Respiratory: Chest Surgery Gastrointestinal: Cholecystectomy Genitourinary: No Pertinent History Musculoskeletal: Joint Replacement, Orthopedic Surgery Female Surgical History: No Pertinent History Other Surgical History: two valve replacment, both hips replacement, rotator cuff. Significant Family History: no pertinent family hx - Social History Smoking Status: Current every day smoker How long have you smoked: 30+ Exposure to second hand smoke: No Drug Use: none - Social Determinants of Health Will the patient participate in the screening: Declined to provide - Nursing Vital Signs Nursing Vital Signs: Initial Vital Signs Temperature 97.8 F 01/17/25 19:50 Pulse Rate 61 01/17/25 19:50 Respiratory Rate 18 01/17/25 19:50 Blood Pressure 109/55 01/17/25 19:50 O2 Sat by Pulse Oximetry 96 01/17/25 19:50 Pain Scale Pain Intensity 5 - Physical Exam General Appearance: no apparent distress Eye Exam: PERRL/EOMI, eyes nml inspection Ears, Nose, Throat Exam: normal ENT inspection Neck Exam: normal inspection Respiratory Exam: normal breath sounds, other (patient is tender in the posterior left chest wall area and has no lumbar tenderness) Cardiovascular Exam: regular rate/rhythm Gastrointestinal/Abdomen Exam: soft, normal bowel sounds SpO2: 96 Ordered Tests: Active Orders 24 hr Category Date Time Status CHEST WITHOUT CONTRAST [CT] Stat Exams 01/17/25 20:39 Taken - Progress Progress Note: Conjunctivitis patient was seen and evaluated status post fall she is tender in the left posterior chest wall area she has no ecchymosis or edema or erythema- patients daughter is conernced about internal bleeding and rib fractures s/p her fall - I will order CT of the chest was obtained to rule out acute pathology 01/17/25 20:45 CT chest reveals no acute findings osteopenia mild degenerative changes spondylolysis Patient was updated with results she was informed of the need for follow-up with her primary care provider in the morning she is to take Tylenol as needed for discomfort 01/17/25 22:16 Medical Desision Making - Discussion of managment Agreed on:: need for follow-up - Departure Departure Disposition: Home Clinical Impression: Contusion of chest wall Condition: Stable Critical Care Time: No Referrals: KYUNG DAWSON MD [Primary Care Provider] - Follow up/PCP as directed
[2025-01-17 22:18] VITALS: O2SAT 96
[2025-01-17 22:29] VITALS: BP 145/96
--- NOTE | 2025-01-18 09:13 | XRAY ---
Indication: Status post fall. Pain. Multiple contiguous axial images obtained through the chest without contrast. Comparison: None Lungs demonstrate mild bilateral dependent atelectasis and minimal left base subsegmental atelectasis/scarring. No suspicious pulmonary mass/nodule, infiltrate, effusion, or pneumothorax. Heart is enlarged with aortic valve replacement, mitral valve calcifications, and scattered coronary calcifications. Aorta minimally atherosclerotic without aneurysm. No pathologic mediastinal lymphadenopathy. Osseous structures intact with osteopenia and minimal/mild degenerative changes throughout spine. Limited upper abdomen demonstrates cholecystectomy. Impression: Chronic findings including atelectasis/scarring, cardiomegaly, arteriosclerotic disease, and chronic bony findings. No acute findings on this noncontrast exam.
== END 2025-01-17 22:30 | disposition home or self-care (01) ==
LOC: ED 18:59
DX: S20.212A Contusion of left front wall of thorax, initial encounter (principal); W17.81XA Fall down embankment (hill), initial encounter; M54.50 Low back pain, unspecified; E78.5 Hyperlipidemia, unspecified; I11.0 Hypertensive heart disease with heart failure; I50.9 Heart failure, unspecified; Z79.84 Long term (current) use of oral hypoglycemic drugs; Z79.899 Other long term (current) drug therapy; Z72.0 Tobacco use
CPT/HCPCS: 71250; 99283; 99284